=== PATIENT | female | born 1950 | race Caucasian/White ===

== ENCOUNTER 2023-12-04 16:39 | Inpatient (IN) | payer MEDICARE, BC ==
[~2023-12-04] VITALS: Ht 160 cm; Wt 62.6 kg
[2023-12-04 20:17] LABS: BASOPHILS % (AUTO) 0.3 % (0.0-2.0); EOSINOPHILS # (AUTO) 0.1 K/uL (0.0-0.7); EOSINOPHILS % (AUTO) 2.2 % (0.0-6.0); HEMATOCRIT 37 % (33-45); HEMOGLOBIN 12.4 g/dL (11.5-14.8); LYMPHOCYTES # (AUTO) 1.2 K/uL (0.8-4.8); LYMPHOCYTES % (AUTO) 26.1 % (20.0-44.0); MEAN CORPUSCULAR HEMOGLOBIN 29 PG (26.0-33.0); MEAN CORPUSCULAR HGB CONC 33 g/dl (31.0-36.0); MEAN CORPUSCULAR VOLUME 87 fL (82-100); MONOCYTES # (AUTO) 0.4 K/uL (0.1-1.30); MONOCYTES % (AUTO) 9.6 % (2.0-12.0); NEUTROPHILS # (AUTO) 2.9 K/uL (1.8-8.9); NEUTROPHILS % (AUTO) 61.8 % (43.0-81.0); PLATELET COUNT (AUTO) 190 K/uL (150-450); RED BLOOD CELL COUNT(AUTO) 4.32 MIL/uL (4.0-5.2); RED CELL DISTRIBUTION WIDTH 15.9 % (11.5-15.0); WHITE BLOOD COUNT (AUTO) 4.6 K/uL (4.3-11.0)
[2023-12-04 20:31] LABS: CALCIUM, SERUM 9.3 mg/dL (8.5-10.1); CARBON DIOXIDE 28 mmol/L (21-32); CHLORIDE 104 mmol/L (98-107); CREATININE 1.2 mg/dL (0.6-1.3); GLUCOSE 93 mg/dL (74-106); POTASSIUM 3.8 mmol/L (3.5-5.1); SODIUM SERUM 138 mmol/L (136-145); UREA NITROGEN, BLOOD 20 mg/dL (7-18)
[2023-12-04 20:34] LABS: INR 0.97 (0.91-1.10); PARTIAL THROMBOPLASTIN TIME 30.5 SEC (24.3-34.3); PROTHROMBIN TIME 10.3 SECS (9.2-11.1)
[2023-12-04 20:38] LABS: ALANINE AMINOTRANSFERASE 16 U/L (12-78); ALKALINE PHOSPHATASE 106 U/L (46-116); ASPARTATE AMINOTRANSFERASE 11 U/L (15-37); BILIRUBIN,DIRECT 0.1 mg/dL (0.0-0.2); BILIRUBIN,TOTAL 0.2 mg/dL (0.2-1.0); TOTAL PROTEIN, SERUM 6.3 g/dL (6.4-8.2)
[2023-12-04 20:40] LABS: THYROID STIMULATING HORMONE 0.352 uIU/mL (0.358-3.74)
[2023-12-04 20:41] LABS: APPEARANCE,URINE CLEAR (CLEAR); BILIRUBIN,URINE 1+ (NEGATIVE); BLOOD, URINE NEGATIVE Ery/uL (NEGATIVE); COLOR,URINE YELLOW (YELLOW); KETONES,URINE TRACE mg/dL (NEGATIVE); LEUKOCYTE ESTERASE ,URINE NEGATIVE (NEGATIVE); NITRITE, URINE NEGATIVE (NEGATIVE); PH,URINE 5.5 (5.0-8.0); PROTEIN,URINE NEGATIVE (NEGATIVE); UGLUCOSE NEGATIVE (NEGATIVE)
[2023-12-04 21:48] LABS: ADD URINE CULTURE NO; BACTERIA,URINE None seen /HPF (None Seen); RBC,URINE NONE SEEN /HPF (0-2); SQUAMOUS EPITHELIAL CELL,UR 0-2 /HPF (None Seen); WBC,URINE NONE SEEN /HPF (0-3)
[2023-12-04] MEDS ORDERED: HYDR-500 PO (21:56)
[2023-12-04] MEDS ORDERED: ATOR40TA PO (21:56)
[2023-12-04] MEDS ORDERED: RIVA10TA PO (21:56)
[2023-12-04] MEDS ORDERED: ZALE10CA PO (21:56)
[2023-12-04] MEDS ORDERED: ESCI20TA PO (21:56)
[2023-12-04] MEDS ORDERED: AMIT25TA9 PO (21:56)
[2023-12-04] MEDS ORDERED: PRAM1.5T3 PO (21:56)
[2023-12-04] MEDS ORDERED: AMLO-212 PO (21:56)
[2023-12-04] MEDS ORDERED: GABA600T12 PO (21:56)
[2023-12-04] MEDS ORDERED: SOTA80TA PO (21:56)
[2023-12-04] MEDS ORDERED: PRED20TA PO (21:56)
[2023-12-04 22:10] VITALS: BP 136/56; TEMP 97.3; O2SAT 95
[2023-12-05] MEDS ORDERED: ACETAMINOPHEN 325 MG TABLET PO PRN (00:30)
[2023-12-05] MEDS ORDERED: ONDANSETRON HCL/PF 4 MG/2 ML VIAL IVP PRN (00:30)
[2023-12-05] MEDS: IV NS 0.9% 1,000 ML IV PRN (00:53)
[2023-12-05] MEDS: AMITRIPTYLINE HCL 25 MG TABLET PO SCH ×2 (01:11→21:05)
[2023-12-05] MEDS: ENOXAPARIN SODIUM 40 MG/0.4 ML DISP.SYRIN SQ SCH ×2 (01:11→20:01)
[2023-12-05] MEDS: ATORVASTATIN 40 MG TABLET PO SCH ×2 (01:11→21:05)
[2023-12-05 07:21] LABS: BASOPHILS % (AUTO) 0.4 % (0.0-2.0); EOSINOPHILS # (AUTO) 0.1 K/uL (0.0-0.7); EOSINOPHILS % (AUTO) 2.3 % (0.0-6.0); HEMATOCRIT 37 % (33-45); HEMOGLOBIN 12.5 g/dL (11.5-14.8); LYMPHOCYTES # (AUTO) 1.2 K/uL (0.8-4.8); LYMPHOCYTES % (AUTO) 24.9 % (20.0-44.0); MEAN CORPUSCULAR HEMOGLOBIN 29 PG (26.0-33.0); MEAN CORPUSCULAR HGB CONC 34 g/dl (31.0-36.0); MEAN CORPUSCULAR VOLUME 86 fL (82-100); MONOCYTES # (AUTO) 0.4 K/uL (0.1-1.30); MONOCYTES % (AUTO) 8.2 % (2.0-12.0); NEUTROPHILS # (AUTO) 3.1 K/uL (1.8-8.9); NEUTROPHILS % (AUTO) 64.2 % (43.0-81.0); PLATELET COUNT (AUTO) 182 K/uL (150-450); RED BLOOD CELL COUNT(AUTO) 4.32 MIL/uL (4.0-5.2); RED CELL DISTRIBUTION WIDTH 15.5 % (11.5-15.0); WHITE BLOOD COUNT (AUTO) 4.8 K/uL (4.3-11.0)
[2023-12-05 08:34] VITALS: BP 139/62; TEMP 97.7; O2SAT 99
[2023-12-05] MEDS ORDERED: AZIT250T PO (08:38)
[2023-12-05 08:52] LABS: CREATININE 0.8 mg/dL (0.6-1.3); MAGNESIUM 1.5 mg/dL (1.8-2.4); PHOSPHORUS 3.6 mg/dL (2.5-4.9); POTASSIUM 3.8 mmol/L (3.5-5.1)
[2023-12-05] MEDS ORDERED: hydrOXYzine PAMOATE 25 MG CAPSULE PO PRN (09:00)
[2023-12-05] MEDS: ESCITALOPRAM OXALATE (10 MG) 10 MG TABLET PO SCH (09:07)
[2023-12-05] MEDS: predniSONE 20 MG TABLET PO SCH (09:07)
[2023-12-05] MEDS: PRAMIPEXOLE DI-HCL 0.25 MG TABLET PO SCH (09:07)
[2023-12-05] MEDS: GABAPENTIN 300 MG CAPSULE PO SCH ×3 (09:07→17:03)
[2023-12-05] MEDS: AMLODIPINE BESYLATE 5 MG TABLET PO SCH (09:08)
[2023-12-05] MEDS: SOTALOL HCL 80 MG TABLET PO SCH ×2 (09:36→21:16)
[2023-12-05] MEDS ORDERED: MAGNESIUM OXIDE 400 MG TABLET PO ONE (10:30)
[2023-12-05] MEDS: RIVAROXABAN 10 MG TABLET PO SCH (17:05)
[2023-12-05] MEDS ORDERED: LORAZEPAM 1 MG TABLET PO ONE (18:30)
[2023-12-05] MEDS: ZOLPIDEM TARTRATE 10 MG TABLET PO PRN (19:23)
[2023-12-05 20:00] VITALS: BP 109/77; TEMP 98.1; O2SAT 98
[2023-12-05] MEDS ORDERED: SOTALOL AF 80 MG TABLET ONE (21:13)
[2023-12-06] MEDS: IV NS 0.9% 1,000 ML IV PRN (02:37)
[2023-12-06 07:00] VITALS: BP 150/71; TEMP 97.7; O2SAT 98
[2023-12-06 07:15] LABS: BASOPHILS % (AUTO) 0.5 % (0.0-2.0); EOSINOPHILS % (AUTO) 0.8 % (0.0-6.0); HEMATOCRIT 39 % (33-45); HEMOGLOBIN 12.9 g/dL (11.5-14.8); LYMPHOCYTES # (AUTO) 1.2 K/uL (0.8-4.8); LYMPHOCYTES % (AUTO) 19.8 % (20.0-44.0); MEAN CORPUSCULAR HEMOGLOBIN 29 PG (26.0-33.0); MEAN CORPUSCULAR HGB CONC 33 g/dl (31.0-36.0); MEAN CORPUSCULAR VOLUME 86 fL (82-100); MONOCYTES # (AUTO) 0.4 K/uL (0.1-1.30); MONOCYTES % (AUTO) 6.2 % (2.0-12.0); NEUTROPHILS # (AUTO) 4.3 K/uL (1.8-8.9); NEUTROPHILS % (AUTO) 72.7 % (43.0-81.0); PLATELET COUNT (AUTO) 211 K/uL (150-450); RED CELL DISTRIBUTION WIDTH 15.8 % (11.5-15.0)
[2023-12-06 07:36] LABS: CALCIUM, SERUM 9.4 mg/dL (8.5-10.1); CARBON DIOXIDE 29 mmol/L (21-32); CHLORIDE 106 mmol/L (98-107); CREATININE 0.8 mg/dL (0.6-1.3); GLUCOSE 86 mg/dL (74-106); MAGNESIUM 1.7 mg/dL (1.8-2.4); PHOSPHORUS 2.6 mg/dL (2.5-4.9); POTASSIUM 3.9 mmol/L (3.5-5.1); SODIUM SERUM 141 mmol/L (136-145); UREA NITROGEN, BLOOD 15 mg/dL (7-18)
[2023-12-06] MEDS: ESCITALOPRAM OXALATE (10 MG) 10 MG TABLET PO SCH (09:17)
[2023-12-06] MEDS: PRAMIPEXOLE DI-HCL 0.25 MG TABLET PO SCH (09:18)
[2023-12-06] MEDS: GABAPENTIN 300 MG CAPSULE PO SCH ×3 (09:18→17:23)
[2023-12-06] MEDS: AMLODIPINE BESYLATE 5 MG TABLET PO SCH (09:19)
[2023-12-06] MEDS: predniSONE 20 MG TABLET PO SCH (09:19)
[2023-12-06] MEDS: SOTALOL HCL 80 MG TABLET PO SCH ×2 (09:24→20:28)
[2023-12-06] MEDS ORDERED: MAGNESIUM OXIDE 400 MG TABLET PO ONE (10:00)
[2023-12-06] MEDS: NICOTINE PATCH (21MG) 21 MG PATCH.TD24 TD SCH (15:10)
[2023-12-06 16:00] VITALS: BP 131/60; TEMP 97.9; O2SAT 92
[2023-12-06] MEDS: RIVAROXABAN 10 MG TABLET PO SCH (17:24)
[2023-12-06] MEDS: ZOLPIDEM TARTRATE 10 MG TABLET PO PRN (19:31)
[2023-12-06 20:00] VITALS: BP 155/73; TEMP 97.7; O2SAT 95
[2023-12-06] MEDS: ATORVASTATIN 40 MG TABLET PO SCH (20:28)
[2023-12-06] MEDS: ENOXAPARIN SODIUM 40 MG/0.4 ML DISP.SYRIN SQ SCH (20:33)
[2023-12-06] MEDS: AMITRIPTYLINE HCL 25 MG TABLET PO SCH (20:34)
[2023-12-07 07:00] VITALS: BP 151/67; TEMP 98.1; O2SAT 97
[2023-12-07 07:10] LABS: BASOPHILS % (AUTO) 0.3 % (0.0-2.0); EOSINOPHILS % (AUTO) 0.4 % (0.0-6.0); HEMATOCRIT 37 % (33-45); HEMOGLOBIN 12.6 g/dL (11.5-14.8); LYMPHOCYTES # (AUTO) 1.3 K/uL (0.8-4.8); MEAN CORPUSCULAR HEMOGLOBIN 29 PG (26.0-33.0); MEAN CORPUSCULAR HGB CONC 34 g/dl (31.0-36.0); MEAN CORPUSCULAR VOLUME 86 fL (82-100); MONOCYTES # (AUTO) 0.5 K/uL (0.1-1.30); MONOCYTES % (AUTO) 7.8 % (2.0-12.0); NEUTROPHILS # (AUTO) 4.5 K/uL (1.8-8.9); NEUTROPHILS % (AUTO) 70.5 % (43.0-81.0); PLATELET COUNT (AUTO) 217 K/uL (150-450); RED BLOOD CELL COUNT(AUTO) 4.36 MIL/uL (4.0-5.2); RED CELL DISTRIBUTION WIDTH 15.5 % (11.5-15.0); WHITE BLOOD COUNT (AUTO) 6.4 K/uL (4.3-11.0)
[2023-12-07 07:30] LABS: CALCIUM, SERUM 8.6 mg/dL (8.5-10.1); CARBON DIOXIDE 28 mmol/L (21-32); CHLORIDE 104 mmol/L (98-107); CREATININE 0.9 mg/dL (0.6-1.3); GLUCOSE 90 mg/dL (74-106); MAGNESIUM 1.5 mg/dL (1.8-2.4); PHOSPHORUS 2.4 mg/dL (2.5-4.9); POTASSIUM 3.8 mmol/L (3.5-5.1); SODIUM SERUM 139 mmol/L (136-145); UREA NITROGEN, BLOOD 15 mg/dL (7-18)
[2023-12-07] MEDS: NICOTINE PATCH (21MG) 21 MG PATCH.TD24 TD SCH (09:27)
[2023-12-07] MEDS: GABAPENTIN 300 MG CAPSULE PO SCH ×2 (09:27→14:43)
[2023-12-07] MEDS: AMLODIPINE BESYLATE 5 MG TABLET PO SCH (09:27)
[2023-12-07] MEDS: predniSONE 20 MG TABLET PO SCH (09:27)
[2023-12-07] MEDS: ESCITALOPRAM OXALATE (10 MG) 10 MG TABLET PO SCH (09:27)
[2023-12-07 09:28] VITALS: BP 151/67
[2023-12-07] MEDS: SOTALOL HCL 80 MG TABLET PO SCH (09:28)
[2023-12-07] MEDS ORDERED: MAGNESIUM OXIDE 400 MG TABLET PO ONE (11:00)
[2023-12-07] MEDS: PRAMIPEXOLE DI-HCL 0.25 MG TABLET PO SCH (14:44)
[2023-12-07] MEDS ORDERED: K PHOS NEUTRAL 250 MG TABLET PO ONE (15:30)
== END 2023-12-07 17:40 | DRG 641 ==
LOC: ER 16:43 → MED 21:45
PROVIDERS: ADMIT Nurse Practitioner Acute Care; ATTEND Nurse Practitioner Acute Care
DX: E86.0 Dehydration (principal); E44.1 Mild protein-calorie malnutrition; R45.851 Suicidal ideations; F33.2 Major depressive disorder, recurrent severe without psychotic features; R62.7 Adult failure to thrive; E83.42 Hypomagnesemia; E88.09 Other disorders of plasma-protein metabolism, not elsewhere classified; E05.90 Thyrotoxicosis, unspecified without thyrotoxic crisis or storm; Z95.0 Presence of cardiac pacemaker; Z68.24 Body mass index [BMI] 24.0-24.9, adult
CPT/HCPCS: 36415; 70450-TC; 71045-TC; 80048-TC; 80076-TC; 81001; 83735-TC; 84100-TC; 84439-TC; 84443-TC; 84481; 84484-TC; 85025-TC; 85730-TC; 87081-TC; 97112-TC; 97116-TC; 97530-TC; A4223; G0378; J1650; J7030

== ENCOUNTER 2024-01-29 14:03 | Inpatient (IN) | payer MEDICARE, BC ==
[~2024-01-29] VITALS: Ht 160 cm; Wt 65.3 kg
[~2024-01-29 14:03] MED LIST: AMIT25TA9 PO; AMLO-212 PO; ATOR40TA PO; AZIT250T PO; ESCI20TA PO; GABA600T12 PO; HYDR-500 PO; PRAM1.5T3 PO; RIVA10TA PO; SOTA80TA PO; ZALE10CA PO
[2024-01-29] MEDS ORDERED: LORA10TA7 PO (15:17)
[2024-01-29] MEDS ORDERED: BACL10TA PO (15:17)
[2024-01-29] MEDS ORDERED: METH4TAB PO (15:17)
[2024-01-29] MEDS ORDERED: ACET-868 PO (15:17)
[2024-01-29] MEDS ORDERED: HYDR-4209 PO (15:17)
[2024-01-29 15:50] LABS: BASOPHILS # (AUTO) 0.1 K/uL (0.0-0.2); BASOPHILS % (AUTO) 0.9 % (0.0-2.0); HEMATOCRIT 26 % (33-45); HEMOGLOBIN 7.5 g/dL (11.5-14.8); LYMPHOCYTES # (AUTO) 0.5 K/uL (0.8-4.8); LYMPHOCYTES % (AUTO) 7.5 % (20.0-44.0); MEAN CORPUSCULAR HEMOGLOBIN 24 PG (26.0-33.0); MEAN CORPUSCULAR HGB CONC 29 g/dl (31.0-36.0); MEAN CORPUSCULAR VOLUME 81 fL (82-100); MONOCYTES # (AUTO) 0.2 K/uL (0.1-1.30); MONOCYTES % (AUTO) 2.5 % (2.0-12.0); NEUTROPHILS # (AUTO) 5.6 K/uL (1.8-8.9); NEUTROPHILS % (AUTO) 89.1 % (43.0-81.0); PLATELET COUNT (AUTO) 280 K/uL (150-450); RED CELL DISTRIBUTION WIDTH 23.2 % (11.5-15.0); WHITE BLOOD COUNT (AUTO) 6.3 K/uL (4.3-11.0)
[2024-01-29] MEDS ORDERED: MORPHINE SULFATE INJ 2 MG/ML DISP.SYRIN ONE ×2 (16:01→16:08)
[2024-01-29] MEDS ORDERED: ONDANSETRON HCL/PF 4 MG/2 ML VIAL ONE (16:01)
[2024-01-29] MEDS ORDERED: methylPREDNISolone SOD SUCC 40 MG/ML VIAL ONE (16:15)
[2024-01-29] MEDS: MORPHINE SULFATE INJ 4 MG/ML DISP.SYRIN IV ONE (16:17)
[2024-01-29] MEDS: methylPREDNISolone SOD SUCC 40 MG/ML VIAL IV ONE (16:20)
[2024-01-29 16:23] LABS: CALCIUM, SERUM 8.5 mg/dL (8.5-10.1); CARBON DIOXIDE 29 mmol/L (21-32); CHLORIDE 104 mmol/L (98-107); CREATININE 0.8 mg/dL (0.6-1.3); GLUCOSE 115 mg/dL (74-106); POTASSIUM 4.1 mmol/L (3.5-5.1); SODIUM SERUM 138 mmol/L (136-145); UREA NITROGEN, BLOOD 24 mg/dL (7-18)
[2024-01-29 20:00] VITALS: BP 137/61; TEMP 97.5; O2SAT 94
[2024-01-29] MEDS ORDERED: ENOXAPARIN SODIUM 40 MG/0.4 ML DISP.SYRIN SQ SCH (20:00)
[2024-01-29] MEDS ORDERED: MAGNESIUM HYDROXIDE 30 ML UDC PO PRN (20:00)
[2024-01-29] MEDS ORDERED: Z GUARD REMEDY 4 OZ OINT TP PRN (20:00)
[2024-01-29] MEDS ORDERED: BACLOFEN (10 MG) 10 MG TABLET PO PRN (20:00)
[2024-01-29] MEDS ORDERED: MAG HYDROX/AL HYDROX/SIMETH 30 ML UDC PO PRN (20:00)
[2024-01-29] MEDS ORDERED: LORATADINE 10 MG TABLET PO PRN (20:00)
[2024-01-29] MEDS ORDERED: ONDANSETRON HCL/PF 4 MG/2 ML VIAL IVP PRN (20:00)
[2024-01-29] MEDS: IV NS 0.9% 1,000 ML IV PRN (20:58)
[2024-01-29] MEDS: GABAPENTIN 400 MG CAPSULE PO SCH (21:42)
[2024-01-29] MEDS: ATORVASTATIN 40 MG TABLET PO SCH (21:42)
[2024-01-29 22:27] VITALS: BP 137/61; TEMP 97.5; O2SAT 94
[2024-01-30] VITALS (7 sets, daily range): BP systolic 108–151; BP diastolic 44–88; TEMP 97.7–98.4; O2SAT 92–96
[2024-01-30] MEDS: HYDROCODONE/APAP 5/325MG TABLET PO PRN (01:43)
[2024-01-30] MEDS: ACETAMINOPHEN 325 MG TABLET PO PRN (05:56)
[2024-01-30 07:04] LABS: BASOPHILS % (AUTO) 0.2 % (0.0-2.0); EOSINOPHILS % (AUTO) 0.1 % (0.0-6.0); HEMATOCRIT 23 % (33-45); LYMPHOCYTES # (AUTO) 0.5 K/uL (0.8-4.8); LYMPHOCYTES % (AUTO) 9.9 % (20.0-44.0); MEAN CORPUSCULAR HEMOGLOBIN 24 PG (26.0-33.0); MEAN CORPUSCULAR HGB CONC 30 g/dl (31.0-36.0); MEAN CORPUSCULAR VOLUME 79 fL (82-100); MONOCYTES # (AUTO) 0.2 K/uL (0.1-1.30); MONOCYTES % (AUTO) 4.8 % (2.0-12.0); NEUTROPHILS # (AUTO) 4.1 K/uL (1.8-8.9); PLATELET COUNT (AUTO) 257 K/uL (150-450); RED BLOOD CELL COUNT(AUTO) 2.85 MIL/uL (4.0-5.2); RED CELL DISTRIBUTION WIDTH 22.4 % (11.5-15.0); WHITE BLOOD COUNT (AUTO) 4.8 K/uL (4.3-11.0)
[2024-01-30 07:05] LABS: HEMOGLOBIN 6.8 g/dL (11.5-14.8)
[2024-01-30 07:15] LABS: CALCIUM, SERUM 8.4 mg/dL (8.5-10.1); CREATININE 0.7 mg/dL (0.6-1.3); MAGNESIUM 1.9 mg/dL (1.8-2.4); PHOSPHORUS 4.1 mg/dL (2.5-4.9); POTASSIUM 4.4 mmol/L (3.5-5.1)
[2024-01-30 07:20] LABS: THYROID STIMULATING HORMONE 0.142 uIU/mL (0.358-3.74)
[2024-01-30] MEDS: PANTOPRAZOLE 40 MG TABLET.DR PO SCH (08:56)
[2024-01-30] MEDS: ESCITALOPRAM OXALATE (10 MG) 10 MG TABLET PO SCH (08:56)
[2024-01-30] MEDS: AMLODIPINE BESYLATE 5 MG TABLET PO SCH (08:57)
[2024-01-30] MEDS: SOTALOL HCL 80 MG TABLET PO SCH (09:04)
[2024-01-30] MEDS: methylPREDNISolone (4MG) 4 MG TABLET PO SCH (09:05)
[2024-01-30] MEDS ORDERED: RIVAROXABAN 10 MG TABLET PO SCH (10:00)
[2024-01-30 12:03] LABS: ANISOCYTOSIS 1+; BASOPHILS % (MANUAL) 0 % (0.0-2.0); EOSINOPHILS % (MANUAL) 0 % (0-4); HYPOCHROMASIA 1+; LYMPHOCYTES % (MANUAL) 10 % (16-48); MONOCYTES % (MANUAL) 6 % (0-11.0); NEUTROPHILS % (MANUAL) 84 (42-76); PLATELET ESTIMATE ADEQUATE; STOMATOCYTES 1+
[2024-01-31] VITALS (9 sets, daily range): BP systolic 116–151; BP diastolic 59–90; TEMP 97.7–98.4; O2SAT 95–96
[2024-01-31] MEDS: GABAPENTIN 300 MG CAPSULE PO SCH (09:10)
[2024-01-31 16:15] LABS: HEMOGLOBIN 8.1 g/dL (11.5-14.8)
[2024-01-31] MEDS: TRAZODONE 50 MG TABLET PO PRN (23:21)
[2024-02-01 11:46] VITALS: BP 113/92; TEMP 98.8
[2024-02-01 16:10] VITALS: BP 158/94
== END 2024-02-01 17:47 | DRG 552 ==
LOC: ER 14:10 → MED 17:24 → TELE 19:05 → MED 01-30 11:10
PROC: 30233N1 Transfusion of Nonautologous Red Blood Cells into Peripheral Vein, Percutaneous Approach (ICD-10-PCS; principal; 2024-01-31)
DX: M47.816 Spondylosis without myelopathy or radiculopathy, lumbar region (principal); G89.29 Other chronic pain; E78.5 Hyperlipidemia, unspecified; I10 Essential (primary) hypertension; Z79.891 Long term (current) use of opiate analgesic; Z79.899 Other long term (current) drug therapy; Z79.01 Long term (current) use of anticoagulants; R53.83 Other fatigue; R79.89 Other specified abnormal findings of blood chemistry; Z95.0 Presence of cardiac pacemaker
CPT/HCPCS: 36415; 72131-TC; 80048-TC; 80061-TC; 83735-TC; 84100-TC; 84443-TC; 84484-TC; 85025-TC; 85027-TC; 86850-TC; 97112-TC; 97116-TC; 97530-TC; A4223; G0378; J2270; J2405; J2920; J7030; J7050; J7509; P9016

== ENCOUNTER 2024-03-27 17:33 | Emergency (ER) | payer MEDICARE, BC ==
[~2024-03-27] VITALS: Ht 160 cm; Wt 68.0 kg
[~2024-03-27 17:33] MED LIST changes: +ACET-868 PO; -AMIT25TA9 PO; -AZIT250T PO; +BACL10TA PO; +HYDR-4209 PO; -HYDR-500 PO; +LORA10TA7 PO; +METH4TAB PO
[2024-03-27] MEDS ORDERED: HYDROCODONE/APAP 5/325MG TABLET ONE (18:14)
[2024-03-27] MEDS: HYDROCODONE/APAP 5/325MG TABLET PO ONE (18:19)
[2024-03-27 18:22] LABS: BASOPHILS % (AUTO) 0.7 % (0.0-2.0); EOSINOPHILS # (AUTO) 0.1 K/uL (0.0-0.7); EOSINOPHILS % (AUTO) 1.6 % (0.0-6.0); HEMATOCRIT 26 % (33-45); HEMOGLOBIN 7.6 g/dL (11.5-14.8); LYMPHOCYTES # (AUTO) 0.7 K/uL (0.8-4.8); LYMPHOCYTES % (AUTO) 18.6 % (20.0-44.0); MEAN CORPUSCULAR HEMOGLOBIN 21 PG (26.0-33.0); MEAN CORPUSCULAR HGB CONC 29 g/dl (31.0-36.0); MEAN CORPUSCULAR VOLUME 72 fL (82-100); MONOCYTES # (AUTO) 0.3 K/uL (0.1-1.30); MONOCYTES % (AUTO) 6.9 % (2.0-12.0); NEUTROPHILS # (AUTO) 2.7 K/uL (1.8-8.9); NEUTROPHILS % (AUTO) 72.2 % (43.0-81.0); PLATELET COUNT (AUTO) 136 K/uL (150-450); RED BLOOD CELL COUNT(AUTO) 3.65 MIL/uL (4.0-5.2); RED CELL DISTRIBUTION WIDTH 21.7 % (11.5-15.0); WHITE BLOOD COUNT (AUTO) 3.8 K/uL (4.3-11.0)
[2024-03-27 18:26] LABS: CALCIUM, SERUM 8.7 mg/dL (8.5-10.1); CREATININE 1.1 mg/dL (0.6-1.3); POTASSIUM 4.3 mmol/L (3.5-5.1)
[2024-03-27 19:23] LABS: ANISOCYTOSIS 1+; BAND % (MANUAL) 1 % (0.0-5.0); EOSINOPHILS % (MANUAL) 3 % (0-4); HYPOCHROMASIA 1+; LYMPHOCYTES % (MANUAL) 20 % (16-48); MONOCYTES % (MANUAL) 8 % (0-11.0); NEUTROPHILS % (MANUAL) 68 (42-76); PLATELET ESTIMATE DECREASED
[2024-03-27 19:24] LABS: OVALOCYTES 1+; STOMATOCYTES 1+
[2024-03-27 21:01] VITALS: BP 135/60; TEMP 98.2; O2SAT 98
== END 2024-03-27 21:09 ==
LOC: ER 17:37
DX: R10.32 Left lower quadrant pain (principal); M25.552 Pain in left hip; I10 Essential (primary) hypertension; I48.91 Unspecified atrial fibrillation; F32.9 Major depressive disorder, single episode, unspecified; F41.9 Anxiety disorder, unspecified; Z79.899 Other long term (current) drug therapy
CPT/HCPCS: 36415; 72170-TC; 73552; 80048-TC; 85025-TC

== ENCOUNTER 2024-03-31 20:29 | Inpatient (IN) | payer MEDICARE, BC ==
[~2024-03-31] VITALS: Ht 170.2 cm; Wt 68.0 kg
[2024-03-31 21:41] LABS: BASOPHILS % (AUTO) 0.8 % (0.0-2.0); EOSINOPHILS # (AUTO) 0.1 K/uL (0.0-0.7); EOSINOPHILS % (AUTO) 1.7 % (0.0-6.0); HEMATOCRIT 25 % (33-45); HEMOGLOBIN 7.4 g/dL (11.5-14.8); LYMPHOCYTES # (AUTO) 1.1 K/uL (0.8-4.8); LYMPHOCYTES % (AUTO) 34.9 % (20.0-44.0); MEAN CORPUSCULAR HEMOGLOBIN 21 PG (26.0-33.0); MEAN CORPUSCULAR HGB CONC 29 g/dl (31.0-36.0); MEAN CORPUSCULAR VOLUME 71 fL (82-100); MONOCYTES # (AUTO) 0.3 K/uL (0.1-1.30); MONOCYTES % (AUTO) 9.1 % (2.0-12.0); NEUTROPHILS # (AUTO) 1.6 K/uL (1.8-8.9); NEUTROPHILS % (AUTO) 53.5 % (43.0-81.0); PLATELET COUNT (AUTO) 127 K/uL (150-450); RED BLOOD CELL COUNT(AUTO) 3.51 MIL/uL (4.0-5.2); RED CELL DISTRIBUTION WIDTH 21.6 % (11.5-15.0)
[2024-03-31 21:54] LABS: CALCIUM, SERUM 9.1 mg/dL (8.5-10.1); CARBON DIOXIDE 30 mmol/L (21-32); CHLORIDE 110 mmol/L (98-107); CREATININE 0.9 mg/dL (0.6-1.3); GLUCOSE 111 mg/dL (74-106); POTASSIUM 4.4 mmol/L (3.5-5.1); SODIUM SERUM 146 mmol/L (136-145); UREA NITROGEN, BLOOD 16 mg/dL (7-18)
[2024-03-31 21:57] LABS: APPEARANCE,URINE CLEAR (CLEAR); BILIRUBIN,URINE NEGATIVE (NEGATIVE); BLOOD, URINE NEGATIVE Ery/uL (NEGATIVE); COLOR,URINE YELLOW (YELLOW); KETONES,URINE NEGATIVE (NEGATIVE); LEUKOCYTE ESTERASE ,URINE NEGATIVE (NEGATIVE); NITRITE, URINE NEGATIVE (NEGATIVE); PROTEIN,URINE NEGATIVE (NEGATIVE); UGLUCOSE NEGATIVE (NEGATIVE)
[2024-03-31 21:59] LABS: ADD URINE CULTURE NO; BACTERIA,URINE None seen /HPF (None Seen); RBC,URINE 0-2 /HPF (0-2); WBC,URINE 0-2 /HPF (0-3)
[2024-03-31 22:00] LABS: ACETAMINOPHEN < 10 ug/ml (10-30); ALANINE AMINOTRANSFERASE 11 U/L (12-78); ALBUMIN 2.9 g/dL (3.4-5.0); ALKALINE PHOSPHATASE 78 U/L (46-116); ASPARTATE AMINOTRANSFERASE 12 U/L (15-37); BILIRUBIN,DIRECT 0.1 mg/dL (0.0-0.2); BILIRUBIN,TOTAL 0.2 mg/dL (0.2-1.0); SALICYLATE 3.8 mg/dL (2.8-20.0); TOTAL PROTEIN, SERUM 5.5 g/dL (6.4-8.2)
[2024-03-31 22:01] LABS: ALCOHOL, BLOOD < 3 mg/dL (0-10)
[2024-03-31 22:09] LABS: AMPHETAMINE, URINE NEGATIVE (NEGATIVE); BARBITURATE, URINE NEGATIVE (NEGATIVE); BENZODIAZEPINE, URINE NEGATIVE (NEGATIVE); CANNABINOID, URINE NEGATIVE (NEGATIVE); COCCAINE, URINE NEGATIVE (NEGATIVE); PHENCYCLIDINE SCREEN,URINE NEGATIVE (NEGATIVE)
[2024-03-31 22:11] LABS: OPIATE, URINE POSITIVE (NEGATIVE)
[2024-04-01] MEDS: HYDROCODONE/APAP 5/325MG TABLET PO ONE (01:30)
[2024-04-01 02:06] LABS: ANISOCYTOSIS 1+; BASOPHILS % (MANUAL) 0 % (0.0-2.0); EOSINOPHILS % (MANUAL) 2 % (0-4); HYPOCHROMASIA 1+; LYMPHOCYTES % (MANUAL) 29 % (16-48); MONOCYTES % (MANUAL) 8 % (0-11.0); NEUTROPHILS % (MANUAL) 61 (42-76); OVALOCYTES 1+; PLATELET ESTIMATE DECREASED
[2024-04-01] MEDS ORDERED: HYDROCODONE/APAP 5/325MG TABLET ONE (02:29)
[2024-04-01 03:00] VITALS: BP 136/67; TEMP 97.9; O2SAT 95
[2024-04-01] MEDS ORDERED: MAGNESIUM HYDROXIDE 30 ML UDC PO PRN (03:00)
[2024-04-01] MEDS ORDERED: MAG HYDROX/AL HYDROX/SIMETH 30 ML UDC PO PRN (03:00)
[2024-04-01] MEDS: BLOOD SUGAR DIAGNOSTIC 1 EACH STRIP IN ONE (03:01)
[2024-04-01] MEDS ORDERED: LORATADINE 10 MG TABLET PO PRN (03:30)
[2024-04-01] MEDS ORDERED: BACLOFEN (10 MG) 10 MG TABLET PO PRN (03:30)
[2024-04-01] MEDS: ACETAMINOPHEN 325 MG TABLET PO PRN ×2 (04:21→09:21)
[2024-04-01 07:37] LABS: ALANINE AMINOTRANSFERASE 14 U/L (12-78); ALBUMIN 3.2 g/dL (3.4-5.0); ALKALINE PHOSPHATASE 83 U/L (46-116); ASPARTATE AMINOTRANSFERASE 14 U/L (15-37); BILIRUBIN,TOTAL 0.3 mg/dL (0.2-1.0); CALCIUM, SERUM 9.5 mg/dL (8.5-10.1); CARBON DIOXIDE 30 mmol/L (21-32); CHLORIDE 109 mmol/L (98-107); GLUCOSE 87 mg/dL (74-106); POTASSIUM 4.4 mmol/L (3.5-5.1); SODIUM SERUM 143 mmol/L (136-145); UREA NITROGEN, BLOOD 16 mg/dL (7-18)
[2024-04-01 07:41] LABS: CHOLESTEROL 111 mg/dL (<200); HDL CHOLESTEROL 56 mg/dL (40-60); LDL 45 mg/dL (0-99); TRIGLYCERIDES 74 mg/dL (30-150)
[2024-04-01] MEDS: HYDROCODONE/APAP 5/325MG TABLET PO PRN ×2 (07:44→14:59)
[2024-04-01 07:49] LABS: BASOPHILS % (AUTO) 1.1 % (0.0-2.0); EOSINOPHILS % (AUTO) 1.2 % (0.0-6.0); HEMATOCRIT 28 % (33-45); HEMOGLOBIN 8.3 g/dL (11.5-14.8); LYMPHOCYTES % (AUTO) 35.2 % (20.0-44.0); MEAN CORPUSCULAR HEMOGLOBIN 21 PG (26.0-33.0); MEAN CORPUSCULAR HGB CONC 30 g/dl (31.0-36.0); MEAN CORPUSCULAR VOLUME 72 fL (82-100); MONOCYTES # (AUTO) 0.2 K/uL (0.1-1.30); MONOCYTES % (AUTO) 8.1 % (2.0-12.0); NEUTROPHILS # (AUTO) 1.6 K/uL (1.8-8.9); NEUTROPHILS % (AUTO) 54.4 % (43.0-81.0); PLATELET COUNT (AUTO) 135 K/uL (150-450); RED BLOOD CELL COUNT(AUTO) 3.91 MIL/uL (4.0-5.2); RED CELL DISTRIBUTION WIDTH 21.4 % (11.5-15.0)
[2024-04-01] MEDS ORDERED: BACL5TAB PO (07:59)
[2024-04-01] MEDS ORDERED: TRAZ-182 PO (07:59)
[2024-04-01] MEDS ORDERED: HYDR-4303 PO (07:59)
[2024-04-01] MEDS ORDERED: ACET-2030 PO (07:59)
[2024-04-01] MEDS ORDERED: PANT40TA2 PO (07:59)
[2024-04-01] MEDS ORDERED: GABA300C PO (07:59)
[2024-04-01] MEDS ORDERED: LIQUID PROTEIN PO (07:59)
[2024-04-01] MEDS ORDERED: ONDA-97 PO (07:59)
[2024-04-01] MEDS ORDERED: HYDR-3980 PO (07:59)
[2024-04-01] MEDS ORDERED: CYAN-51 PO (07:59)
[2024-04-01] MEDS ORDERED: ERGO500093 PO (07:59)
[2024-04-01 08:00] VITALS: BP 130/80; TEMP 97.9; O2SAT 95
[2024-04-01] MEDS: AMLODIPINE BESYLATE 5 MG TABLET PO SCH (08:38)
[2024-04-01] MEDS: SOTALOL HCL 80 MG TABLET PO SCH (08:39)
[2024-04-01] MEDS: RIVAROXABAN 10 MG TABLET PO SCH (08:56)
[2024-04-01] MEDS: methylPREDNISolone (4MG) 4 MG TABLET PO SCH (09:21)
[2024-04-01] MEDS ORDERED: GABAPENTIN 300 MG CAPSULE PO SCH (12:00)
[2024-04-01] MEDS: DULOXETINE HCL 30 MG CAPSULE.DR PO SCH (12:29)
[2024-04-01] MEDS: ESCITALOPRAM OXALATE (10 MG) 10 MG TABLET PO SCH (12:29)
[2024-04-01 16:03] VITALS: BP 133/60; TEMP 97.7; O2SAT 97
[2024-04-01] MEDS: PREGABALIN 25 MG CAPSULE PO SCH (16:29)
[2024-04-01] MEDS: ATORVASTATIN 40 MG TABLET PO SCH (21:38)
[2024-04-01] MEDS: TRAZODONE 50 MG TABLET PO SCH (21:38)
[2024-04-02 08:00] VITALS: BP 135/65; TEMP 97.7; O2SAT 98
[2024-04-02 13:12] LABS: IRON, SERUM 15 ug/dl (50-175); TOTAL IRON BINDING CAPACITY 447 ug/dl (250-450)
[2024-04-02 13:24] LABS: FERRITIN 10 ng/mL (8-388); THYROID STIMULATING HORMONE 0.936 uIU/mL (0.358-3.74)
[2024-04-02 13:36] LABS: CALCIUM, SERUM 9.8 mg/dL (8.5-10.1); CARBON DIOXIDE 30 mmol/L (21-32); CHLORIDE 103 mmol/L (98-107); GLUCOSE 116 mg/dL (74-106); POTASSIUM 3.8 mmol/L (3.5-5.1); SODIUM SERUM 140 mmol/L (136-145); UREA NITROGEN, BLOOD 16 mg/dL (7-18)
[2024-04-02 13:51] LABS: BASOPHILS % (AUTO) 0.5 % (0.0-2.0); EOSINOPHILS % (AUTO) 0.3 % (0.0-6.0); HEMATOCRIT 28 % (33-45); HEMOGLOBIN 8.4 g/dL (11.5-14.8); LYMPHOCYTES # (AUTO) 0.3 K/uL (0.8-4.8); LYMPHOCYTES % (AUTO) 7.6 % (20.0-44.0); MEAN CORPUSCULAR HEMOGLOBIN 21 PG (26.0-33.0); MEAN CORPUSCULAR HGB CONC 30 g/dl (31.0-36.0); MEAN CORPUSCULAR VOLUME 71 fL (82-100); MONOCYTES # (AUTO) 0.2 K/uL (0.1-1.30); MONOCYTES % (AUTO) 3.6 % (2.0-12.0); NEUTROPHILS # (AUTO) 4.1 K/uL (1.8-8.9); PLATELET COUNT (AUTO) 141 K/uL (150-450); RED BLOOD CELL COUNT(AUTO) 4.02 MIL/uL (4.0-5.2); WHITE BLOOD COUNT (AUTO) 4.6 K/uL (4.3-11.0)
[2024-04-02 16:00] VITALS: BP 141/56; TEMP 98.7; O2SAT 96
[2024-04-02] MEDS: DULOXETINE HCL 30 MG CAPSULE.DR PO SCH (16:36)
[2024-04-02 18:00] LABS: ANISOCYTOSIS 2+; HYPOCHROMASIA 1+; LYMPHOCYTES % (MANUAL) 6 % (16-48); MONOCYTES % (MANUAL) 5 % (0-11.0); NEUTROPHILS % (MANUAL) 89 (42-76); PLATELET ESTIMATE DECREASED
[2024-04-02 18:01] LABS: OVALOCYTES 1+
[2024-04-03] MEDS: TEMAZEPAM 7.5 MG CAPSULE PO PRN (02:06)
[2024-04-03] MEDS: LORAZEPAM 0.5 MG TABLET PO PRN (04:44)
[2024-04-03 08:00] VITALS: BP 126/77; TEMP 98.2; O2SAT 98
[2024-04-03] MEDS: ESCITALOPRAM OXALATE (10 MG) 10 MG TABLET PO SCH (08:39)
[2024-04-03 08:40] VITALS: BP 126/77
[2024-04-03] MEDS: ASCORBIC ACID 500 MG TABLET PO SCH (09:43)
[2024-04-03] MEDS: FERROUS SULFATE (325 MG) 325 MG/TAB TABLET PO SCH (09:43)
[2024-04-03] MEDS: LIDOCAINE 5% (PATCH) 1 EA PATCH TP SCH (11:02)
[2024-04-03] MEDS: METHOCARBAMOL (500MG) 500 MG TABLET PO PRN (11:03)
[2024-04-03] MEDS: POLYETHYLENE GLYCOL 3350 17 GM POWD.PACK PO SCH (12:19)
[2024-04-03] MEDS ORDERED: PREGABALIN 25 MG CAPSULE PO SCH (17:00)
[2024-04-04] MEDS ORDERED: PSYLLIUM SEED 1 PKT PACKET PO SCH (09:00)
== END 2024-04-03 15:23 | DRG 885 ==
LOC: ER 20:31 → GPS 04-01 01:26
PROVIDERS: ADMIT Psychiatry & Neurology Psychosomatic Medicine; ATTEND Nurse Practitioner Family
DX: F33.9 Major depressive disorder, recurrent, unspecified (principal); I10 Essential (primary) hypertension; Z20.822 Contact with and (suspected) exposure to COVID-19; D64.9 Anemia, unspecified; E78.5 Hyperlipidemia, unspecified; G89.29 Other chronic pain; Z86.73 Personal history of transient ischemic attack (TIA), and cerebral infarction without residual deficits; F41.9 Anxiety disorder, unspecified; Z73.6 Limitation of activities due to disability; M79.662 Pain in left lower leg; I48.91 Unspecified atrial fibrillation; Z79.01 Long term (current) use of anticoagulants; Z79.899 Other long term (current) drug therapy; J43.9 Emphysema, unspecified; F17.210 Nicotine dependence, cigarettes, uncomplicated; Z95.0 Presence of cardiac pacemaker
CPT/HCPCS: 36415; 80048-TC; 80053-TC; 80061-TC; 80076-TC; 81001; 82607-TC; 82728-TC; 82962-TC; 83540-TC; 84443-TC; 85025-TC; 87081-TC; 93971-TC; 97110-TC; 97116-TC; 97530-TC; G0480; J7509

== ENCOUNTER 2024-04-11 01:30 | Emergency (ER) | payer MEDICARE, BC, MEDICAID ==
[~2024-04-11] VITALS: Ht 162.6 cm; Wt 74.8 kg
[~2024-04-11 01:30] MED LIST changes: +ACET-2030 PO; -BACL10TA PO; +BACL5TAB PO; +CYAN-51 PO; +ERGO500093 PO; +GABA300C PO; -GABA600T12 PO; +HYDR-3980 PO; -HYDR-4209 PO; +HYDR-4303 PO; +LIQUID PROTEIN PO; -LORA10TA7 PO; -METH4TAB PO; +ONDA-97 PO; +PANT40TA2 PO; -SOTA80TA PO; +TRAZ-182 PO; -ZALE10CA PO
[2024-04-11 01:59] VITALS: BP 120/61; TEMP 98.4; O2SAT 98
[2024-04-11] MEDS ORDERED: MORPHINE SULFATE INJ 4 MG/ML DISP.SYRIN ONE (02:27)
[2024-04-11] MEDS ORDERED: ONDANSETRON HCL/PF 4 MG/2 ML VIAL ONE (02:28)
[2024-04-11] MEDS: MORPHINE SULFATE INJ 2 MG/ML DISP.SYRIN IV ONE (02:34)
[2024-04-11 02:35] LABS: BASOPHILS % (AUTO) 1.1 % (0.0-2.0); EOSINOPHILS # (AUTO) 0.1 K/uL (0.0-0.7); EOSINOPHILS % (AUTO) 1.8 % (0.0-6.0); HEMATOCRIT 30 % (33-45); HEMOGLOBIN 9.1 g/dL (11.5-14.8); LYMPHOCYTES # (AUTO) 1.3 K/uL (0.8-4.8); LYMPHOCYTES % (AUTO) 29.4 % (20.0-44.0); MEAN CORPUSCULAR HEMOGLOBIN 22 PG (26.0-33.0); MEAN CORPUSCULAR HGB CONC 30 g/dl (31.0-36.0); MEAN CORPUSCULAR VOLUME 73 fL (82-100); MONOCYTES # (AUTO) 0.4 K/uL (0.1-1.30); MONOCYTES % (AUTO) 9.5 % (2.0-12.0); NEUTROPHILS # (AUTO) 2.5 K/uL (1.8-8.9); NEUTROPHILS % (AUTO) 58.2 % (43.0-81.0); PLATELET COUNT (AUTO) 178 K/uL (150-450); RED BLOOD CELL COUNT(AUTO) 4.14 MIL/uL (4.0-5.2); RED CELL DISTRIBUTION WIDTH 22.1 % (11.5-15.0); WHITE BLOOD COUNT (AUTO) 4.3 K/uL (4.3-11.0)
[2024-04-11] MEDS: ONDANSETRON HCL/PF - ER 4 MG/2 ML VIAL IV ONE (02:35)
[2024-04-11 02:54] LABS: LACTIC ACID 0.8 mmol/L (0.4-2.0)
[2024-04-11 03:00] LABS: ALBUMIN 3.5 g/dL (3.4-5.0); BILIRUBIN,TOTAL 0.4 mg/dL (0.2-1.0); CALCIUM, SERUM 10.3 mg/dL (8.5-10.1); POTASSIUM 4.7 mmol/L (3.5-5.1); TOTAL PROTEIN, SERUM 6.4 g/dL (6.4-8.2)
[2024-04-11 03:48] LABS: APPEARANCE,URINE CLEAR (CLEAR); BILIRUBIN,URINE NEGATIVE (NEGATIVE); BLOOD, URINE NEGATIVE Ery/uL (NEGATIVE); COLOR,URINE YELLOW (YELLOW); KETONES,URINE NEGATIVE (NEGATIVE); LEUKOCYTE ESTERASE ,URINE NEGATIVE (NEGATIVE); NITRITE, URINE NEGATIVE (NEGATIVE); PH,URINE 6.5 (5.0-8.0); PROTEIN,URINE NEGATIVE (NEGATIVE); UGLUCOSE NEGATIVE (NEGATIVE)
== END 2024-04-11 06:41 ==
LOC: ER 01:39
DX: R10.32 Left lower quadrant pain (principal); I48.91 Unspecified atrial fibrillation; I10 Essential (primary) hypertension; F32.9 Major depressive disorder, single episode, unspecified; F41.9 Anxiety disorder, unspecified
CPT/HCPCS: 99285; 74176; 96374; 96375; 85025; 83605; 83690; 81003; 36415; 80053; J2270; J2405 ×2

== ENCOUNTER 2024-04-13 08:37 | Inpatient (IN) | payer MEDICARE, BC, OTHER ==
[~2024-04-13] VITALS: Ht 160 cm; Wt 60.3 kg
[2024-04-13] MEDS ORDERED: ONDANSETRON HCL/PF 4 MG/2 ML VIAL ONE (09:05)
[2024-04-13] MEDS ORDERED: MORPHINE SULFATE INJ 4 MG/ML DISP.SYRIN ONE (09:06)
[2024-04-13] MEDS: MORPHINE SULFATE INJ 2 MG/ML DISP.SYRIN IV ONE (09:16)
[2024-04-13] MEDS: IV NS 0.9% 1,000 ML BAG IV ONE (09:16)
[2024-04-13] MEDS: ONDANSETRON HCL/PF 4 MG/2 ML VIAL IVP ONE (09:16)
[2024-04-13 09:34] LABS: BASOPHILS % (AUTO) 0.8 % (0.0-2.0); EOSINOPHILS % (AUTO) 0.9 % (0.0-6.0); HEMATOCRIT 34 % (33-45); LYMPHOCYTES # (AUTO) 0.9 K/uL (0.8-4.8); LYMPHOCYTES % (AUTO) 16.1 % (20.0-44.0); MEAN CORPUSCULAR HEMOGLOBIN 22 PG (26.0-33.0); MEAN CORPUSCULAR HGB CONC 30 g/dl (31.0-36.0); MEAN CORPUSCULAR VOLUME 73 fL (82-100); MONOCYTES # (AUTO) 0.4 K/uL (0.1-1.30); MONOCYTES % (AUTO) 7.3 % (2.0-12.0); NEUTROPHILS % (AUTO) 74.9 % (43.0-81.0); PLATELET COUNT (AUTO) 200 K/uL (150-450); RED BLOOD CELL COUNT(AUTO) 4.61 MIL/uL (4.0-5.2); RED CELL DISTRIBUTION WIDTH 23.3 % (11.5-15.0); WHITE BLOOD COUNT (AUTO) 5.3 K/uL (4.3-11.0)
[2024-04-13 09:39] LABS: ADD URINE CULTURE NO; APPEARANCE,URINE CLEAR (CLEAR); BACTERIA,URINE Rare /HPF (None Seen); BILIRUBIN,URINE 1+ (NEGATIVE); BLOOD, URINE NEGATIVE Ery/uL (NEGATIVE); COLOR,URINE YELLOW (YELLOW); KETONES,URINE 1+ mg/dL (NEGATIVE); LEUKOCYTE ESTERASE ,URINE NEGATIVE (NEGATIVE); NITRITE, URINE NEGATIVE (NEGATIVE); PROTEIN,URINE NEGATIVE (NEGATIVE); SQUAMOUS EPITHELIAL CELL,UR Few /HPF (None Seen); UGLUCOSE NEGATIVE (NEGATIVE); WBC,URINE 0-2 /HPF (0-3)
[2024-04-13 09:45] LABS: CALCIUM, SERUM 10.1 mg/dL (8.5-10.1); CREATININE 1.3 mg/dL (0.6-1.3)
[2024-04-13] MEDS ORDERED: IOHEXOL-300 100 ML VIAL IV ONE (09:45)
[2024-04-13] MEDS ORDERED: CT SWABBABLE VALVE TRANS SET 1 EA INFUS.SET MC ONE (09:45)
[2024-04-13] MEDS ORDERED: IV NS 0.9% 250 ML IV ONE (09:46)
[2024-04-13 09:56] LABS: ALBUMIN 3.9 g/dL (3.4-5.0); BILIRUBIN,DIRECT 0.2 mg/dL (0.0-0.2); BILIRUBIN,TOTAL 0.6 mg/dL (0.2-1.0)
[2024-04-13] MEDS ORDERED: HALOPERIDOL LACTATE INJ 5 MG/ML VIAL ONE (10:01)
[2024-04-13] MEDS ORDERED: HYDROMORPHONE 1 MG/1 ML DISP.SYRIN ONE ×2 (10:02→11:01)
[2024-04-13] MEDS: HALOPERIDOL LACTATE INJ 5 MG/ML VIAL IM ONE (10:03)
[2024-04-13] MEDS: HYDROMORPHONE INJ 2 MG/ML DISP.SYRIN IV ONE (10:03)
[2024-04-13] MEDS: HYDROMORPHONE 1 MG/1 ML DISP.SYRIN IV ONE (11:03)
[2024-04-13] MEDS ORDERED: LORA-258 PO (11:08)
[2024-04-13] MEDS ORDERED: NALO4SPR NS (11:08)
[2024-04-13] MEDS ORDERED: FERR325T28 PO (11:08)
[2024-04-13] MEDS ORDERED: DULO30CA2 PO (11:08)
[2024-04-13] MEDS ORDERED: [UNRECOGNIZED DRUG - CODE] PO (11:08)
[2024-04-13] MEDS ORDERED: ASCO-340 PO (11:08)
[2024-04-13] MEDS ORDERED: MAG-5 PO (11:08)
[2024-04-13] MEDS ORDERED: POLY17PO4 PO (11:08)
[2024-04-13] MEDS ORDERED: LORA10TA7 PO (11:08)
[2024-04-13] MEDS ORDERED: PREG75CA PO (11:08)
[2024-04-13] MEDS ORDERED: LIDO30AD10 TP (11:08)
[2024-04-13] MEDS ORDERED: TEMA7.5C12 PO (11:08)
[2024-04-13] MEDS ORDERED: MAGN400O6 PO (11:08)
[2024-04-13] MEDS ORDERED: SOTA80TA26 PO (11:08)
[2024-04-13] MEDS ORDERED: ACETAMINOPHEN 325 MG TABLET PO PRN (13:00)
[2024-04-13] MEDS ORDERED: MAG HYDROX/AL HYDROX/SIMETH 30 ML UDC PO PRN (13:00)
[2024-04-13] MEDS ORDERED: ONDANSETRON HCL/PF 4 MG/2 ML VIAL IVP PRN (13:00)
[2024-04-13] MEDS ORDERED: MORPHINE SULFATE INJ 10 MG/ML DISP.SYRIN IV PRN (13:00)
[2024-04-13] MEDS ORDERED: Z GUARD REMEDY 4 OZ OINT TP PRN (13:00)
[2024-04-13] MEDS ORDERED: MAGNESIUM HYDROXIDE 30 ML UDC PO PRN (13:00)
[2024-04-13] MEDS ORDERED: LORAZEPAM 0.5 MG TABLET PO PRN (13:30)
[2024-04-13] MEDS ORDERED: LORATADINE 10 MG TABLET PO PRN (13:30)
[2024-04-13] MEDS ORDERED: BACLOFEN (10 MG) 10 MG TABLET PO PRN (14:00)
[2024-04-13] MEDS: PIPERACILLIN /TAZOBACTAM 3.375 G in IV D5W 100 ML IV SCH (16:06)
[2024-04-13] MEDS: IV NS 0.9% 1,000 ML IV PRN (16:08)
[2024-04-13] MEDS: GABAPENTIN 300 MG CAPSULE PO SCH (17:10)
[2024-04-13] MEDS: PREGABALIN 25 MG CAPSULE PO SCH (17:10)
[2024-04-13] MEDS: DULOXETINE HCL 30 MG CAPSULE.DR PO SCH (17:10)
[2024-04-13] MEDS: FERROUS SULFATE (325 MG) 325 MG/TAB TABLET PO SCH (17:10)
[2024-04-13] MEDS: SOTALOL HCL 80 MG TABLET PO SCH (17:13)
[2024-04-13] MEDS ORDERED: GABAPENTIN 300 MG CAPSULE PO SCH (18:00)
[2024-04-13] MEDS ORDERED: PIPERACILLIN /TAZOBACTAM 4.5 G in IV D5W 50 ML IV SCH (18:00)
[2024-04-13] MEDS: HYDROCODONE/APAP 5/325MG TABLET PO PRN (18:04)
[2024-04-13] MEDS: MORPHINE SULFATE INJ 2 MG/ML DISP.SYRIN IV PRN (19:45)
[2024-04-13] MEDS: ZOLPIDEM TARTRATE 5 MG TABLET PO PRN (20:18)
[2024-04-13] MEDS: ATORVASTATIN 40 MG TABLET PO SCH (21:54)
[2024-04-14 06:45] LABS: BASOPHILS % (AUTO) 0.7 % (0.0-2.0); EOSINOPHILS % (AUTO) 1.2 % (0.0-6.0); HEMATOCRIT 28 % (33-45); HEMOGLOBIN 8.5 g/dL (11.5-14.8); LYMPHOCYTES # (AUTO) 0.8 K/uL (0.8-4.8); LYMPHOCYTES % (AUTO) 19.5 % (20.0-44.0); MEAN CORPUSCULAR HEMOGLOBIN 22 PG (26.0-33.0); MEAN CORPUSCULAR HGB CONC 30 g/dl (31.0-36.0); MEAN CORPUSCULAR VOLUME 73 fL (82-100); MONOCYTES # (AUTO) 0.4 K/uL (0.1-1.30); MONOCYTES % (AUTO) 11.1 % (2.0-12.0); NEUTROPHILS # (AUTO) 2.8 K/uL (1.8-8.9); NEUTROPHILS % (AUTO) 67.5 % (43.0-81.0); PLATELET COUNT (AUTO) 175 K/uL (150-450); RED CELL DISTRIBUTION WIDTH 22.8 % (11.5-15.0); WHITE BLOOD COUNT (AUTO) 4.1 K/uL (4.3-11.0)
[2024-04-14 06:52] LABS: CARBON DIOXIDE 24 mmol/L (21-32); CHLORIDE 109 mmol/L (98-107); GLUCOSE 62 mg/dL (74-106); MAGNESIUM 1.7 mg/dL (1.8-2.4); PHOSPHORUS 3.7 mg/dL (2.5-4.9); POTASSIUM 3.8 mmol/L (3.5-5.1); SODIUM SERUM 143 mmol/L (136-145); UREA NITROGEN, BLOOD 12 mg/dL (7-18)
[2024-04-14] MEDS: PANTOPRAZOLE 40 MG VIAL IV SCH (09:02)
[2024-04-14] MEDS: POLYETHYLENE GLYCOL 3350 17 GM POWD.PACK PO SCH (09:02)
[2024-04-14] MEDS: ESCITALOPRAM OXALATE (10 MG) 10 MG TABLET PO SCH (09:03)
[2024-04-14] MEDS: RIVAROXABAN 15 MG TABLET PO SCH (09:03)
[2024-04-14] MEDS: AMLODIPINE BESYLATE 5 MG TABLET PO SCH (09:04)
[2024-04-14] MEDS: MAGNESIUM OXIDE 400 MG TABLET PO ONE (10:16)
[2024-04-15] MEDS: PANTOPRAZOLE 40 MG TABLET.DR PO SCH (09:05)
[2024-04-15] MEDS ORDERED: METR500T PO ×2 (15:48)
[2024-04-15 16:00] VITALS: BP 130/82; TEMP 99.1; O2SAT 99
== END 2024-04-15 18:35 | DRG 373 ==
LOC: ER 08:45 → MEDSG1 13:04
PROVIDERS: ADMIT Internal Medicine; ATTEND Student in an Organized Health Care Education/Training Program
DX: A04.9 Bacterial intestinal infection, unspecified (principal); I10 Essential (primary) hypertension; I48.91 Unspecified atrial fibrillation; F41.9 Anxiety disorder, unspecified; E78.5 Hyperlipidemia, unspecified; F32.A Depression, unspecified; Z79.01 Long term (current) use of anticoagulants; Z86.73 Personal history of transient ischemic attack (TIA), and cerebral infarction without residual deficits; Z95.0 Presence of cardiac pacemaker; D50.9 Iron deficiency anemia, unspecified; Z90.49 Acquired absence of other specified parts of digestive tract; G89.29 Other chronic pain; M79.662 Pain in left lower leg; M54.50 Low back pain, unspecified; M51.35 Other intervertebral disc degeneration, thoracolumbar region; J44.9 Chronic obstructive pulmonary disease, unspecified; J43.9 Emphysema, unspecified; Z87.891 Personal history of nicotine dependence
CPT/HCPCS: 36415; 80048-TC; 80053-TC; 80076-TC; 81001; 83605-TC; 83690-TC; 83735-TC; 84100-TC; 85025-TC; 87081-TC; 97110-TC; 97116-TC; 97530-TC; A4223; C9113; G0378; J1170; J1630; J2270; J2405; J2543; J7030; J7050; J7060; Q9967

== ENCOUNTER 2024-05-04 12:20 | Emergency (ER) | payer MEDICARE, BC, OTHER ==
[~2024-05-04] VITALS: Ht 162.6 cm; Wt 56.2 kg
[~2024-05-04 12:20] MED LIST changes: +ASCO-340 PO; +DULO30CA2 PO; +FERR325T28 PO; -HYDR-4303 PO; +LIDO30AD10 TP; -LIQUID PROTEIN PO; +LORA-258 PO; +LORA10TA7 PO; +MAG-5 PO; +MAGN400O6 PO; +METR500T PO; +NALO4SPR NS; +POLY17PO4 PO; +PREG75CA PO; +SOTA80TA26 PO; +TEMA7.5C12 PO; +[UNRECOGNIZED DRUG - CODE] PO
[2024-05-04] MEDS ORDERED: IBUP-1953 PO (14:11)
[2024-05-04 14:16] VITALS: BP 121/74; TEMP 98; O2SAT 97
[2024-05-04] MEDS ORDERED: ACETAMINOPHEN ES 500 MG TABLET ONE (14:16)
[2024-05-04] MEDS ORDERED: IBUPROFEN 600 MG TABLET ONE (14:16)
[2024-05-04] MEDS: ACETAMINOPHEN ES 500 MG TABLET PO ONE (14:16)
[2024-05-04] MEDS: IBUPROFEN 600 MG TABLET PO ONE (14:16)
[2024-05-04] MEDS: HYDROCODONE/APAP 5/325MG TABLET PO ONE (14:59)
[2024-05-04] MEDS ORDERED: HYDROCODONE/APAP 5/325MG TABLET ONE (14:59)
== END 2024-05-04 18:55 ==
LOC: ER 12:31
DX: M79.652 Pain in left thigh (principal); I10 Essential (primary) hypertension; I48.91 Unspecified atrial fibrillation; F32.9 Major depressive disorder, single episode, unspecified; F41.9 Anxiety disorder, unspecified
CPT/HCPCS: 73552

== ENCOUNTER 2024-06-12 08:25 | Emergency (ER) | payer MEDICARE, BC, OTHER ==
[~2024-06-12] VITALS: Ht 162.6 cm; Wt 56.7 kg
[~2024-06-12 08:25] MED LIST changes: +IBUP-1953 PO
[2024-06-12] MEDS ORDERED: ONDANSETRON HCL/PF 4 MG/2 ML VIAL ONE (09:43)
[2024-06-12] MEDS ORDERED: MORPHINE SULFATE INJ 4 MG/ML DISP.SYRIN ONE (09:44)
[2024-06-12] MEDS: MORPHINE SULFATE INJ 2 MG/ML DISP.SYRIN IV ONE (09:58)
[2024-06-12] MEDS: ONDANSETRON HCL/PF - ER 4 MG/2 ML VIAL IV ONE (09:58)
[2024-06-12 10:08] LABS: BASOPHILS % (AUTO) 0.5 % (0.0-2.0); EOSINOPHILS # (AUTO) 0.1 K/uL (0.0-0.7); EOSINOPHILS % (AUTO) 1.9 % (0.0-6.0); HEMATOCRIT 40 % (33-45); HEMOGLOBIN 12.7 g/dL (11.5-14.8); LYMPHOCYTES # (AUTO) 1.3 K/uL (0.8-4.8); LYMPHOCYTES % (AUTO) 28.5 % (20.0-44.0); MEAN CORPUSCULAR HEMOGLOBIN 27 PG (26.0-33.0); MEAN CORPUSCULAR HGB CONC 32 g/dl (31.0-36.0); MEAN CORPUSCULAR VOLUME 85 fL (82-100); MONOCYTES # (AUTO) 0.4 K/uL (0.1-1.30); MONOCYTES % (AUTO) 7.5 % (2.0-12.0); NEUTROPHILS # (AUTO) 2.9 K/uL (1.8-8.9); NEUTROPHILS % (AUTO) 61.6 % (43.0-81.0); PLATELET COUNT (AUTO) 149 K/uL (150-450); RED BLOOD CELL COUNT(AUTO) 4.64 MIL/uL (4.0-5.2); WHITE BLOOD COUNT (AUTO) 4.7 K/uL (4.3-11.0)
[2024-06-12 10:18] LABS: CALCIUM, SERUM 9.4 mg/dL (8.5-10.1); CARBON DIOXIDE 32 mmol/L (21-32); CHLORIDE 108 mmol/L (98-107); CREATININE 0.7 mg/dL (0.6-1.3); GLUCOSE 83 mg/dL (74-106); POTASSIUM 4.5 mmol/L (3.5-5.1); SODIUM SERUM 145 mmol/L (136-145); UREA NITROGEN, BLOOD 12 mg/dL (7-18)
[2024-06-12 10:24] LABS: ALANINE AMINOTRANSFERASE 15 U/L (12-78); ALBUMIN 3.3 g/dL (3.4-5.0); ALKALINE PHOSPHATASE 91 U/L (46-116); ASPARTATE AMINOTRANSFERASE 16 U/L (15-37); BILIRUBIN,TOTAL 0.5 mg/dL (0.2-1.0); TOTAL PROTEIN, SERUM 6.2 g/dL (6.4-8.2)
[2024-06-12 11:23] LABS: APPEARANCE,URINE CLEAR (CLEAR); BILIRUBIN,URINE NEGATIVE (NEGATIVE); BLOOD, URINE NEGATIVE Ery/uL (NEGATIVE); COLOR,URINE YELLOW (YELLOW); KETONES,URINE NEGATIVE (NEGATIVE); LEUKOCYTE ESTERASE ,URINE NEGATIVE (NEGATIVE); NITRITE, URINE NEGATIVE (NEGATIVE); PROTEIN,URINE NEGATIVE (NEGATIVE); UGLUCOSE NEGATIVE (NEGATIVE); UROBILINOGEN,URINE 0.2 EU/dL (0.2)
[2024-06-12 13:32] VITALS: BP 158/91; TEMP 98.2; O2SAT 94
== END 2024-06-12 13:32 | disposition home or self-care (01) ==
LOC: ER 08:59
DX: R10.32 Left lower quadrant pain (principal); I48.91 Unspecified atrial fibrillation; I10 Essential (primary) hypertension; F32.9 Major depressive disorder, single episode, unspecified; F41.9 Anxiety disorder, unspecified; Z95.0 Presence of cardiac pacemaker; Z90.49 Acquired absence of other specified parts of digestive tract
CPT/HCPCS: 99285; 74176; 96374; 96375; 85025; 81003; 36415; 80053; J2270; J2405 ×2

== ENCOUNTER 2024-09-26 04:25 | Emergency (ER) | payer MEDICARE, BC, MEDICAID ==
[~2024-09-26] VITALS: Ht 165.1 cm; Wt 74.8 kg
[2024-09-26 05:28] LABS: BASOPHILS % (AUTO) 0.4 % (0.0-2.0); EOSINOPHILS # (AUTO) 0.1 K/uL (0.0-0.7); EOSINOPHILS % (AUTO) 1.3 % (0.0-6.0); HEMATOCRIT 40 % (33-45); HEMOGLOBIN 13.3 g/dL (11.5-14.8); LYMPHOCYTES # (AUTO) 1.3 K/uL (0.8-4.8); LYMPHOCYTES % (AUTO) 27.9 % (20.0-44.0); MEAN CORPUSCULAR HEMOGLOBIN 31 PG (26.0-33.0); MEAN CORPUSCULAR HGB CONC 33 g/dl (31.0-36.0); MEAN CORPUSCULAR VOLUME 94 fL (82-100); MONOCYTES # (AUTO) 0.4 K/uL (0.1-1.30); MONOCYTES % (AUTO) 8.5 % (2.0-12.0); NEUTROPHILS # (AUTO) 2.9 K/uL (1.8-8.9); NEUTROPHILS % (AUTO) 61.9 % (43.0-81.0); PLATELET COUNT (AUTO) 144 K/uL (150-450); RED CELL DISTRIBUTION WIDTH 14.5 % (11.5-15.0); WHITE BLOOD COUNT (AUTO) 4.6 K/uL (4.3-11.0)
[2024-09-26 05:31] LABS: APPEARANCE,URINE CLOUDY (CLEAR); BILIRUBIN,URINE NEGATIVE (NEGATIVE); BLOOD, URINE NEGATIVE Ery/uL (NEGATIVE); COLOR,URINE YELLOW (YELLOW); KETONES,URINE NEGATIVE (NEGATIVE); LEUKOCYTE ESTERASE ,URINE NEGATIVE (NEGATIVE); NITRITE, URINE NEGATIVE (NEGATIVE); PROTEIN,URINE NEGATIVE (NEGATIVE); UGLUCOSE NEGATIVE (NEGATIVE); UROBILINOGEN,URINE 0.2 EU/dL (0.2)
[2024-09-26 05:41] LABS: ALANINE AMINOTRANSFERASE 18 U/L (12-78); ALBUMIN 3.8 g/dL (3.4-5.0); ALKALINE PHOSPHATASE 105 U/L (46-116); ASPARTATE AMINOTRANSFERASE 14 U/L (15-37); BILIRUBIN,DIRECT 0.1 mg/dL (0.0-0.2); BILIRUBIN,TOTAL 0.6 mg/dL (0.2-1.0); CALCIUM, SERUM 9.7 mg/dL (8.5-10.1); CARBON DIOXIDE 32 mmol/L (21-32); CHLORIDE 108 mmol/L (98-107); CREATININE 0.6 mg/dL (0.6-1.3); GLUCOSE 95 mg/dL (74-106); LIPASE 42 U/L (16-77); POTASSIUM 4.4 mmol/L (3.5-5.1); SODIUM SERUM 142 mmol/L (136-145); TOTAL PROTEIN, SERUM 6.5 g/dL (6.4-8.2); UREA NITROGEN, BLOOD 25 mg/dL (7-18)
[2024-09-26 05:58] LABS: ADD URINE CULTURE NO; BACTERIA,URINE None seen /HPF (None Seen); RBC,URINE NONE SEEN /HPF (0-2); WBC,URINE NONE SEEN /HPF (0-3)
[2024-09-26] MEDS ORDERED: MAG HYDROX/AL HYDROX/SIMETH 30 ML UDC ONE (06:52)
[2024-09-26] MEDS ORDERED: FAMOTIDINE (20 MG) 20 MG TABLET ONE (06:52)
[2024-09-26] MEDS: FAMOTIDINE (20 MG) 20 MG TABLET PO ONE (06:55)
[2024-09-26] MEDS: MAG HYDROX/AL HYDROX/SIMETH 30 ML UDC PO ONE (06:55)
[2024-09-26] MEDS ORDERED: AMOX-430 PO (09:01)
[2024-09-26 12:37] VITALS: BP 141/76; TEMP 98.2; O2SAT 97
== END 2024-09-26 10:00 | disposition home or self-care (01) ==
LOC: ER 04:32
DX: R10.10 Upper abdominal pain, unspecified (principal); R10.32 Left lower quadrant pain; R19.7 Diarrhea, unspecified; R41.82 Altered mental status, unspecified; F41.9 Anxiety disorder, unspecified; I10 Essential (primary) hypertension; I48.91 Unspecified atrial fibrillation; K21.9 Gastro-esophageal reflux disease without esophagitis; Z79.01 Long term (current) use of anticoagulants; Z79.899 Other long term (current) drug therapy; Z90.49 Acquired absence of other specified parts of digestive tract; Z90.710 Acquired absence of both cervix and uterus; Z95.0 Presence of cardiac pacemaker; Z86.69 Personal history of other diseases of the nervous system and sense organs; Z87.448 Personal history of other diseases of urinary system; Z87.39 Personal history of other diseases of the musculoskeletal system and connective tissue
CPT/HCPCS: 36415; 70450-TC; 71045-TC; 80048-TC; 80076-TC; 81001; 83690-TC; 84484-TC; 85025-TC

== ENCOUNTER 2024-10-16 19:47 | Emergency (ER) | payer MEDICARE, BC, MEDICAID ==
[~2024-10-16] VITALS: Ht 160 cm; Wt 54.4 kg
[~2024-10-16 19:47] MED LIST changes: +AMOX-430 PO
[2024-10-16] MEDS: IV NS 0.9% 500 ML BAG IV ONE (20:30)
[2024-10-16 21:05] LABS: BASOPHILS % (AUTO) 0.4 % (0.0-2.0); EOSINOPHILS # (AUTO) 0.1 K/uL (0.0-0.7); EOSINOPHILS % (AUTO) 2.1 % (0.0-6.0); HEMATOCRIT 38 % (33-45); HEMOGLOBIN 12.7 g/dL (11.5-14.8); LYMPHOCYTES # (AUTO) 1.4 K/uL (0.8-4.8); LYMPHOCYTES % (AUTO) 26.2 % (20.0-44.0); MEAN CORPUSCULAR HEMOGLOBIN 32 PG (26.0-33.0); MEAN CORPUSCULAR HGB CONC 34 g/dl (31.0-36.0); MEAN CORPUSCULAR VOLUME 95 fL (82-100); MONOCYTES # (AUTO) 0.4 K/uL (0.1-1.30); MONOCYTES % (AUTO) 8.4 % (2.0-12.0); NEUTROPHILS # (AUTO) 3.2 K/uL (1.8-8.9); NEUTROPHILS % (AUTO) 62.9 % (43.0-81.0); PLATELET COUNT (AUTO) 147 K/uL (150-450); RED BLOOD CELL COUNT(AUTO) 3.98 MIL/uL (4.0-5.2); RED CELL DISTRIBUTION WIDTH 14.7 % (11.5-15.0); WHITE BLOOD COUNT (AUTO) 5.2 K/uL (4.3-11.0)
[2024-10-16 21:13] LABS: CREATININE 0.7 mg/dL (0.6-1.3); POTASSIUM 4.3 mmol/L (3.5-5.1)
[2024-10-16 23:53] VITALS: BP 131/80; TEMP 98; O2SAT 98
== END 2024-10-16 23:53 ==
LOC: ER 19:59
DX: G89.29 Other chronic pain (principal); M79.605 Pain in left leg; R42 Dizziness and giddiness; I10 Essential (primary) hypertension; F41.9 Anxiety disorder, unspecified; Z79.01 Long term (current) use of anticoagulants; Z79.899 Other long term (current) drug therapy; Z95.0 Presence of cardiac pacemaker
CPT/HCPCS: 36415; 80048-TC; 85025-TC

== ENCOUNTER 2024-12-04 17:28 | Emergency (ER) | payer MEDICARE, OTHER ==
[~2024-12-04] VITALS: Ht 160 cm; Wt 68.5 kg
[2024-12-04] MEDS ORDERED: ONDANSETRON HCL/PF 4 MG/2 ML VIAL ONE (18:24)
[2024-12-04 18:38] LABS: BASOPHILS % (AUTO) 0.6 % (0.0-2.0); EOSINOPHILS # (AUTO) 0.1 K/uL (0.0-0.7); EOSINOPHILS % (AUTO) 1.8 % (0.0-6.0); HEMATOCRIT 39 % (33-45); HEMOGLOBIN 12.8 g/dL (11.5-14.8); LYMPHOCYTES # (AUTO) 1.3 K/uL (0.8-4.8); LYMPHOCYTES % (AUTO) 30.3 % (20.0-44.0); MEAN CORPUSCULAR HEMOGLOBIN 31 PG (26.0-33.0); MEAN CORPUSCULAR HGB CONC 33 g/dl (31.0-36.0); MEAN CORPUSCULAR VOLUME 95 fL (82-100); MONOCYTES # (AUTO) 0.4 K/uL (0.1-1.30); MONOCYTES % (AUTO) 8.9 % (2.0-12.0); NEUTROPHILS # (AUTO) 2.6 K/uL (1.8-8.9); NEUTROPHILS % (AUTO) 58.4 % (43.0-81.0); PLATELET COUNT (AUTO) 141 K/uL (150-450); RED BLOOD CELL COUNT(AUTO) 4.12 MIL/uL (4.0-5.2); RED CELL DISTRIBUTION WIDTH 14.4 % (11.5-15.0); WHITE BLOOD COUNT (AUTO) 4.4 K/uL (4.3-11.0)
[2024-12-04] MEDS: ONDANSETRON HCL/PF 4 MG/2 ML VIAL IVP ONE (18:39)
[2024-12-04 18:48] LABS: CALCIUM, SERUM 8.8 mg/dL (8.5-10.1); CARBON DIOXIDE 32 mmol/L (21-32); CHLORIDE 109 mmol/L (98-107); CREATININE 0.8 mg/dL (0.6-1.3); GLUCOSE 101 mg/dL (74-106); POTASSIUM 4.1 mmol/L (3.5-5.1); SODIUM SERUM 143 mmol/L (136-145); UREA NITROGEN, BLOOD 24 mg/dL (7-18)
[2024-12-04 18:55] LABS: ALANINE AMINOTRANSFERASE 10 U/L (12-78); ALBUMIN 3.3 g/dL (3.4-5.0); ALKALINE PHOSPHATASE 105 U/L (46-116); ASPARTATE AMINOTRANSFERASE 12 U/L (15-37); BILIRUBIN,DIRECT 0.1 mg/dL (0.0-0.2); BILIRUBIN,TOTAL 0.3 mg/dL (0.2-1.0); TOTAL PROTEIN, SERUM 5.5 g/dL (6.4-8.2)
[2024-12-04 21:37] VITALS: BP 138/79; TEMP 98; O2SAT 94
== END 2024-12-04 23:38 | disposition home or self-care (01) ==
LOC: ER 17:58
DX: R11.0 Nausea (principal); R53.1 Weakness; R22.0 Localized swelling, mass and lump, head; F41.9 Anxiety disorder, unspecified; G44.309 Post-traumatic headache, unspecified, not intractable; I10 Essential (primary) hypertension; I48.91 Unspecified atrial fibrillation; Z79.01 Long term (current) use of anticoagulants; Z79.899 Other long term (current) drug therapy; Z95.0 Presence of cardiac pacemaker; Z86.69 Personal history of other diseases of the nervous system and sense organs; Z87.448 Personal history of other diseases of urinary system; Z87.39 Personal history of other diseases of the musculoskeletal system and connective tissue
CPT/HCPCS: 99285; 72125; 96374; 93005; 70450; 85025; 80048; 80076; 36415; 84484; J2405

== ENCOUNTER 2024-12-26 14:06 | Inpatient (IN) | payer MEDICARE, OTHER ==
[~2024-12-26] VITALS: Ht 160 cm; Wt 60.8 kg
[2024-12-26 14:49] LABS: BASOPHILS % (AUTO) 0.3 % (0.0-2.0); EOSINOPHILS # (AUTO) 0.1 K/uL (0.0-0.7); HEMATOCRIT 45 % (33-45); HEMOGLOBIN 14.7 g/dL (11.5-14.8); LYMPHOCYTES % (AUTO) 17.7 % (20.0-44.0); MEAN CORPUSCULAR HEMOGLOBIN 30 PG (26.0-33.0); MEAN CORPUSCULAR HGB CONC 33 g/dl (31.0-36.0); MEAN CORPUSCULAR VOLUME 92 fL (82-100); MONOCYTES # (AUTO) 0.4 K/uL (0.1-1.30); MONOCYTES % (AUTO) 7.3 % (2.0-12.0); NEUTROPHILS % (AUTO) 73.7 % (43.0-81.0); PLATELET COUNT (AUTO) 165 K/uL (150-450); RED BLOOD CELL COUNT(AUTO) 4.86 MIL/uL (4.0-5.2); RED CELL DISTRIBUTION WIDTH 14.8 % (11.5-15.0); WHITE BLOOD COUNT (AUTO) 5.5 K/uL (4.3-11.0)
[2024-12-26] MEDS ORDERED: RISP1TAB97 PO (14:56)
[2024-12-26] MEDS ORDERED: LORA-259 PO (14:56)
[2024-12-26] MEDS ORDERED: OMEP20CA15 PO (14:56)
[2024-12-26] MEDS ORDERED: GUAI100S69 PO (14:56)
[2024-12-26 14:58] LABS: CALCIUM, SERUM 9.5 mg/dL (8.5-10.1); CREATININE 0.8 mg/dL (0.6-1.3); POTASSIUM 4.8 mmol/L (3.5-5.1)
[2024-12-26] MEDS: NITROGLYCERIN 0.4 MG/TAB BOTTLE SL ONE (15:12)
[2024-12-26] MEDS: ASPIRIN 325 MG TABLET PO ONE (15:13)
[2024-12-26] MEDS ORDERED: ONDANSETRON HCL/PF 4 MG/2 ML VIAL IVP PRN (16:30)
[2024-12-26] MEDS ORDERED: MAGNESIUM HYDROXIDE 30 ML UDC PO PRN (16:30)
[2024-12-26] MEDS ORDERED: Z GUARD REMEDY 4 OZ OINT TP PRN (16:30)
[2024-12-26] MEDS ORDERED: MAG HYDROX/AL HYDROX/SIMETH 30 ML UDC PO PRN (16:30)
[2024-12-26] MEDS ORDERED: LORAZEPAM 1 MG TABLET PO PRN (16:30)
[2024-12-26 17:15] VITALS: BP 153/65; TEMP 97.7; O2SAT 96
[2024-12-26] MEDS: risperiDONE 1 MG TABLET PO SCH (18:01)
[2024-12-26] MEDS: PREGABALIN 25 MG CAPSULE PO SCH (18:02)
[2024-12-26] MEDS: SOTALOL HCL 80 MG TABLET PO SCH (18:03)
[2024-12-26 20:00] VITALS: BP 118/58; TEMP 98.1; O2SAT 95
[2024-12-26] MEDS: ATORVASTATIN 40 MG TABLET PO SCH (21:27)
[2024-12-26] MEDS: TRAZODONE 50 MG TABLET PO SCH (21:27)
[2024-12-27 04:00] VITALS: BP 137/69; TEMP 98.1; O2SAT 94
[2024-12-27 07:57] LABS: CALCIUM, SERUM 10.2 mg/dL (8.5-10.1); CREATININE 0.8 mg/dL (0.6-1.3); PHOSPHORUS 4.1 mg/dL (2.5-4.9); POTASSIUM 4.4 mmol/L (3.5-5.1)
[2024-12-27 08:00] VITALS: BP 137/77; TEMP 98.4; O2SAT 96
[2024-12-27 08:22] LABS: BASOPHILS % (AUTO) 0.6 % (0.0-2.0); EOSINOPHILS # (AUTO) 0.1 K/uL (0.0-0.7); EOSINOPHILS % (AUTO) 1.8 % (0.0-6.0); HEMATOCRIT 47 % (33-45); HEMOGLOBIN 15.4 g/dL (11.5-14.8); LYMPHOCYTES # (AUTO) 1.3 K/uL (0.8-4.8); LYMPHOCYTES % (AUTO) 27.4 % (20.0-44.0); MEAN CORPUSCULAR HEMOGLOBIN 31 PG (26.0-33.0); MEAN CORPUSCULAR HGB CONC 33 g/dl (31.0-36.0); MEAN CORPUSCULAR VOLUME 93 fL (82-100); MONOCYTES # (AUTO) 0.5 K/uL (0.1-1.30); MONOCYTES % (AUTO) 9.4 % (2.0-12.0); NEUTROPHILS % (AUTO) 60.8 % (43.0-81.0); PLATELET COUNT (AUTO) 184 K/uL (150-450); RED BLOOD CELL COUNT(AUTO) 5.05 MIL/uL (4.0-5.2); WHITE BLOOD COUNT (AUTO) 4.9 K/uL (4.3-11.0)
[2024-12-27] MEDS: AMLODIPINE BESYLATE 5 MG TABLET PO SCH (09:23)
[2024-12-27] MEDS: POLYETHYLENE GLYCOL 3350 17 GM POWD.PACK PO SCH (09:23)
[2024-12-27] MEDS: FERROUS SULFATE (325 MG) 325 MG/TAB TABLET PO SCH (09:23)
[2024-12-27] MEDS: PSYLLIUM SEED 1 PKT PACKET PO SCH (09:23)
[2024-12-27] MEDS: PANTOPRAZOLE 40 MG VIAL IV SCH (09:24)
[2024-12-27] MEDS: ESCITALOPRAM OXALATE (10 MG) 10 MG TABLET PO SCH (09:25)
[2024-12-27] MEDS: ASCORBIC ACID 500 MG TABLET PO SCH (09:25)
[2024-12-27] MEDS: RIVAROXABAN 10 MG TABLET PO SCH (09:28)
[2024-12-27] MEDS: CYANOCOBALAMIN 500 MCG TABLET PO SCH (09:31)
[2024-12-27] MEDS: PRAMIPEXOLE DI-HCL 0.25 MG TABLET PO SCH (09:32)
[2024-12-27] MEDS: METOPROLOL TARTRATE 50 MG TABLET PO SCH (09:33)
[2024-12-27 12:00] VITALS: BP 94/70; TEMP 98.4; O2SAT 97
[2024-12-27 16:00] VITALS: BP 102/56; TEMP 98.1; O2SAT 94
[2024-12-27 20:00] VITALS: BP 81/37; TEMP 97.5; O2SAT 93
[2024-12-27] MEDS: ACETAMINOPHEN 325 MG TABLET PO PRN (20:07)
[2024-12-28] VITALS: BP 120/55; TEMP 97.5; O2SAT 92
[2024-12-28 04:00] VITALS: BP 136/59; TEMP 97.5; O2SAT 95
[2024-12-28 06:26] LABS: BASOPHILS % (AUTO) 0.7 % (0.0-2.0); EOSINOPHILS # (AUTO) 0.1 K/uL (0.0-0.7); EOSINOPHILS % (AUTO) 2.3 % (0.0-6.0); HEMATOCRIT 43 % (33-45); HEMOGLOBIN 14.4 g/dL (11.5-14.8); LYMPHOCYTES # (AUTO) 1.4 K/uL (0.8-4.8); MEAN CORPUSCULAR HEMOGLOBIN 31 PG (26.0-33.0); MEAN CORPUSCULAR HGB CONC 34 g/dl (31.0-36.0); MEAN CORPUSCULAR VOLUME 93 fL (82-100); MONOCYTES # (AUTO) 0.4 K/uL (0.1-1.30); MONOCYTES % (AUTO) 9.9 % (2.0-12.0); NEUTROPHILS # (AUTO) 2.4 K/uL (1.8-8.9); NEUTROPHILS % (AUTO) 56.1 % (43.0-81.0); PLATELET COUNT (AUTO) 167 K/uL (150-450); RED BLOOD CELL COUNT(AUTO) 4.64 MIL/uL (4.0-5.2); RED CELL DISTRIBUTION WIDTH 14.6 % (11.5-15.0); WHITE BLOOD COUNT (AUTO) 4.4 K/uL (4.3-11.0)
[2024-12-28 07:00] LABS: CALCIUM, SERUM 9.6 mg/dL (8.5-10.1); CREATININE 0.9 mg/dL (0.6-1.3); MAGNESIUM 1.8 mg/dL (1.8-2.4); PHOSPHORUS 4.1 mg/dL (2.5-4.9); POTASSIUM 4.7 mmol/L (3.5-5.1)
[2024-12-28] MEDS: PANTOPRAZOLE 40 MG TABLET.DR PO SCH (10:09)
[2024-12-28] MEDS: IV 1/2NS 1000 ML 1,000 ML IV SCH (10:09)
[2024-12-28] MEDS ORDERED: CT SWABBABLE VALVE TRANS SET 1 EA INFUS.SET MC ONE (11:42)
[2024-12-28] MEDS ORDERED: IOHEXOL-350 100 ML VIAL IV ONE (11:42)
[2024-12-28] MEDS ORDERED: IV NS 0.9% 250 ML IV ONE (11:42)
[2024-12-28] MEDS ORDERED: METOPROLOL TARTRATE INJ 5 MG/5 ML AMPUL IVP PRN (11:55)
[2024-12-28] MEDS ORDERED: NITROGLYCERIN 0.4 MG/TAB BOTTLE ONE (12:14)
[2024-12-28] MEDS: NITROGLYCERIN 0.4 MG/TAB BOTTLE SL ONE (12:15)
[2024-12-28 21:07] VITALS: BP 112/57; TEMP 97.7; O2SAT 96
[2024-12-29 08:17] VITALS: BP 147/50; TEMP 98.1; O2SAT 95
[2024-12-29 09:37] LABS: INR 1.01 (0.91-1.10); PARTIAL THROMBOPLASTIN TIME 28.8 SEC (24.3-34.3); PROTHROMBIN TIME 10.7 SECS (9.2-11.1)
[2024-12-29 11:56] VITALS: BP 143/77; TEMP 97.7; O2SAT 95
[2024-12-29] MEDS ORDERED: IV SET PRIMARY PUMP SET 1 EA INFUS.SET MC ONE (14:46)
[2024-12-29] MEDS ORDERED: IV NS 0.9% 1,000 ML ONE (14:46)
[2024-12-29] MEDS ORDERED: IODIXANOL 150 ML IV ONE (14:47)
[2024-12-29] MEDS ORDERED: LIDOCAINE HCL/MPF 1% 30 ML VIAL IJ ONE (14:47)
[2024-12-29] MEDS ORDERED: MIDAZOLAM HCL 2 MG/2ML VIAL ONE (15:08)
[2024-12-29] MEDS ORDERED: FENTANYL PF 100MCG/2ML AMPUL ONE (15:08)
[2024-12-29 16:03] VITALS: BP 158/58; TEMP 98.1; O2SAT 95
[2024-12-29 20:00] VITALS: BP 134/70; TEMP 97.7; O2SAT 95
[2024-12-30 07:00] VITALS: BP 98/85; TEMP 97.5; O2SAT 95
[2024-12-30 08:00] VITALS: BP 124/55; TEMP 97.5; O2SAT 95
[2024-12-30 09:23] VITALS: BP 124/55
[2024-12-30] MEDS ORDERED: ASPI-1169 PO (10:49)
== END 2024-12-30 14:40 | DRG 303 ==
LOC: ER 14:18 → TELE 17:17
PROVIDERS: ATTEND Student in an Organized Health Care Education/Training Program
DX: I25.10 Atherosclerotic heart disease of native coronary artery without angina pectoris (principal); I69.351 Hemiplegia and hemiparesis following cerebral infarction affecting right dominant side; I25.810 Atherosclerosis of coronary artery bypass graft(s) without angina pectoris; I10 Essential (primary) hypertension; E78.5 Hyperlipidemia, unspecified; Z79.01 Long term (current) use of anticoagulants; I48.91 Unspecified atrial fibrillation; Z95.0 Presence of cardiac pacemaker; F17.210 Nicotine dependence, cigarettes, uncomplicated; Z95.1 Presence of aortocoronary bypass graft
CPT/HCPCS: 36415; 71045-TC; 75574; 80048-TC; 83735-TC; 83880; 84100-TC; 84484-TC; 85025-TC; 85610-TC; 85730-TC; 87081-TC; 93307-TC; 97110-TC; 97116-TC; 97530-TC; A4223; G0378; J1644; J2250; J2470; J3010; J3490; J7030; J7050; Q9967

== ENCOUNTER 2025-02-18 17:23 | Inpatient (IN) | payer MEDICARE, OTHER, BC ==
[~2025-02-18] VITALS: Ht 160 cm; Wt 73.9 kg
[~2025-02-18 17:23] MED LIST changes: -AMOX-430 PO; +ASPI-1169 PO; -BACL5TAB PO; -DULO30CA2 PO; -ERGO500093 PO; -GABA300C PO; +GUAI100S69 PO; -HYDR-3980 PO; -IBUP-1953 PO; -LIDO30AD10 TP; -LORA-258 PO; +LORA-259 PO; -LORA10TA7 PO; -MAG-5 PO; -MAGN400O6 PO; -METR500T PO; -NALO4SPR NS; +OMEP20CA15 PO; -ONDA-97 PO; -PANT40TA2 PO; +RISP1TAB97 PO; -TEMA7.5C12 PO
[2025-02-18] MEDS ORDERED: SENN-261 PO (19:02)
[2025-02-18] MEDS ORDERED: NICO-726 BC (19:02)
[2025-02-18] MEDS ORDERED: GABA300C PO (19:02)
[2025-02-18 19:27] LABS: BASOPHILS % (AUTO) 0.4 % (0.0-2.0); EOSINOPHILS # (AUTO) 0.1 K/uL (0.0-0.7); EOSINOPHILS % (AUTO) 1.7 % (0.0-6.0); HEMATOCRIT 45 % (33-45); HEMOGLOBIN 15.2 g/dL (11.5-14.8); LYMPHOCYTES # (AUTO) 1.4 K/uL (0.8-4.8); LYMPHOCYTES % (AUTO) 29.4 % (20.0-44.0); MEAN CORPUSCULAR HEMOGLOBIN 31 PG (26.0-33.0); MEAN CORPUSCULAR HGB CONC 34 g/dl (31.0-36.0); MEAN CORPUSCULAR VOLUME 92 fL (82-100); MONOCYTES # (AUTO) 0.4 K/uL (0.1-1.30); MONOCYTES % (AUTO) 8.4 % (2.0-12.0); NEUTROPHILS # (AUTO) 2.8 K/uL (1.8-8.9); NEUTROPHILS % (AUTO) 60.1 % (43.0-81.0); PLATELET COUNT (AUTO) 165 K/uL (150-450); RED BLOOD CELL COUNT(AUTO) 4.87 MIL/uL (4.0-5.2); RED CELL DISTRIBUTION WIDTH 14.9 % (11.5-15.0); WHITE BLOOD COUNT (AUTO) 4.6 K/uL (4.3-11.0)
[2025-02-18 19:42] LABS: ALANINE AMINOTRANSFERASE 15 U/L (12-78); ALBUMIN 4.2 g/dL (3.4-5.0); ALKALINE PHOSPHATASE 115 U/L (46-116); ASPARTATE AMINOTRANSFERASE 16 U/L (15-37); BILIRUBIN,DIRECT 0.2 mg/dL (0.0-0.2); BILIRUBIN,TOTAL 0.8 mg/dL (0.2-1.0); CARBON DIOXIDE 29 mmol/L (21-32); CHLORIDE 105 mmol/L (98-107); CREATININE 0.6 mg/dL (0.6-1.3); GLUCOSE 94 mg/dL (74-106); SODIUM SERUM 142 mmol/L (136-145); TOTAL PROTEIN, SERUM 7.2 g/dL (6.4-8.2); UREA NITROGEN, BLOOD 18 mg/dL (7-18)
[2025-02-18 19:53] LABS: APPEARANCE,URINE CLEAR (CLEAR); BILIRUBIN,URINE NEGATIVE (NEGATIVE); BLOOD, URINE NEGATIVE Ery/uL (NEGATIVE); COLOR,URINE YELLOW (YELLOW); KETONES,URINE NEGATIVE (NEGATIVE); LEUKOCYTE ESTERASE ,URINE NEGATIVE (NEGATIVE); NITRITE, URINE NEGATIVE (NEGATIVE); PH,URINE 6.5 (5.0-8.0); PROTEIN,URINE NEGATIVE (NEGATIVE); UGLUCOSE NEGATIVE (NEGATIVE)
[2025-02-18 19:57] LABS: SALICYLATE 2.6 mg/dL (2.8-20.0)
[2025-02-18 19:58] LABS: ACETAMINOPHEN <10 ug/ml (10-30); ALCOHOL, BLOOD < 3 mg/dL (0-10)
[2025-02-18 19:59] LABS: RBC,URINE 0-2 /HPF (0-2); WBC,URINE 0-2 /HPF (0-3)
[2025-02-18 20:00] LABS: ADD URINE CULTURE NO; BACTERIA,URINE Few /HPF (None Seen); SQUAMOUS EPITHELIAL CELL,UR Few /HPF (None Seen)
[2025-02-18 20:05] LABS: AMPHETAMINE, URINE NEGATIVE (NEGATIVE); BARBITURATE, URINE NEGATIVE (NEGATIVE); BENZODIAZEPINE, URINE NEGATIVE (NEGATIVE); CANNABINOID, URINE NEGATIVE (NEGATIVE); COCCAINE, URINE NEGATIVE (NEGATIVE); OPIATE, URINE NEGATIVE (NEGATIVE); PHENCYCLIDINE SCREEN,URINE NEGATIVE (NEGATIVE)
[2025-02-18 22:30] VITALS: BP 148/76; TEMP 97.7; O2SAT 97
[2025-02-18] MEDS ORDERED: LORAZEPAM 0.5 MG TABLET PO PRN (23:00)
[2025-02-18] MEDS ORDERED: MAG HYDROX/AL HYDROX/SIMETH 30 ML UDC PO PRN (23:00)
[2025-02-18] MEDS ORDERED: TEMAZEPAM 7.5 MG CAPSULE PO PRN ×2 (23:00)
[2025-02-18] MEDS ORDERED: MAGNESIUM HYDROXIDE 30 ML UDC PO PRN (23:00)
[2025-02-18] MEDS: BLOOD SUGAR DIAGNOSTIC 1 EACH STRIP IN ONE (23:19)
[2025-02-19] MEDS ORDERED: GUAIFENESIN 300 MG/15 ML UDC PO PRN (01:00)
[2025-02-19] MEDS: GABAPENTIN 300 MG CAPSULE PO SCH (07:23)
[2025-02-19] MEDS ORDERED: OMEPRAZOLE 20 MG CAPSULE.DR PO SCH (07:30)
[2025-02-19 07:57] LABS: ALBUMIN 3.7 g/dL (3.4-5.0); BILIRUBIN,TOTAL 0.8 mg/dL (0.2-1.0); CALCIUM, SERUM 9.7 mg/dL (8.5-10.1); CREATININE 0.6 mg/dL (0.6-1.3); POTASSIUM 3.9 mmol/L (3.5-5.1); TOTAL PROTEIN, SERUM 6.5 g/dL (6.4-8.2)
[2025-02-19 07:59] LABS: THYROID STIMULATING HORMONE 1.3 uIU/mL (0.358-3.74)
[2025-02-19 08:00] VITALS: BP 148/66; TEMP 98; O2SAT 95
[2025-02-19 08:20] LABS: CHOLESTEROL 163 mg/dL (<200); HDL CHOLESTEROL 69 mg/dL (40-60); LDL 81 mg/dL (0-99); TRIGLYCERIDES 83 mg/dL (30-150)
[2025-02-19] MEDS: ASPIRIN 81 MG TAB.CHEW PO SCH (09:37)
[2025-02-19] MEDS: AMLODIPINE BESYLATE 5 MG TABLET PO SCH (09:37)
[2025-02-19] MEDS: NICOTINE PATCH (21MG) 21 MG PATCH.TD24 TD SCH (09:38)
[2025-02-19] MEDS: PSYLLIUM SEED 1 PKT PACKET PO SCH (09:38)
[2025-02-19] MEDS: PRAMIPEXOLE DI-HCL 0.25 MG TABLET PO SCH (09:38)
[2025-02-19] MEDS: CYANOCOBALAMIN 100 MCG TABLET PO SCH (09:39)
[2025-02-19] MEDS: ASCORBIC ACID 500 MG TABLET PO SCH (09:40)
[2025-02-19] MEDS: SOTALOL HCL 80 MG TABLET PO SCH (09:41)
[2025-02-19] MEDS: RIVAROXABAN 10 MG TABLET PO SCH (09:43)
[2025-02-19 11:00] LABS: CREATININE 0.7 mg/dL (0.6-1.3)
[2025-02-19] MEDS: risperiDONE 1 MG TABLET PO SCH (11:00)
[2025-02-19 20:00] VITALS: BP 130/74; TEMP 98.2; O2SAT 95
[2025-02-19] MEDS: SENNOSIDES 8.6 MG TABLET PO SCH (21:10)
[2025-02-19] MEDS: ATORVASTATIN 40 MG TABLET PO SCH (21:10)
[2025-02-20 08:00] VITALS: BP 115/68; TEMP 97.7; O2SAT 98
[2025-02-20] MEDS: PANTOPRAZOLE 40 MG TABLET.DR PO SCH (09:49)
[2025-02-20] MEDS: risperiDONE 1 MG TABLET PO SCH (10:06)
[2025-02-20] MEDS: SERTRALINE HCL 25 MG TABLET PO SCH (13:40)
[2025-02-20 16:00] VITALS: BP 111/69; TEMP 97.8; O2SAT 98
[2025-02-20 20:20] VITALS: BP_SYST 132; BP_SYST 140; BP_DIAS 76; BP_DIAS 78; TEMP 98; O2SAT 99
[2025-02-21 08:00] VITALS: BP 129/72; TEMP 97.8; O2SAT 98
[2025-02-21 20:48] VITALS: BP 121/77; TEMP 97.8; O2SAT 99
[2025-02-22] MEDS: CYANOCOBALAMIN 500 MCG TABLET PO SCH (08:33)
[2025-02-22 20:55] VITALS: BP 128/94; TEMP 98.1; O2SAT 96
[2025-02-23 08:00] VITALS: BP 110/73; TEMP 97.8; O2SAT 98
[2025-02-23 19:48] VITALS: BP 119/59; TEMP 98.1; O2SAT 96
[2025-02-24 08:00] VITALS: BP 118/90; TEMP 98.1; O2SAT 98
[2025-02-24 16:00] VITALS: BP 123/78; TEMP 98.1; O2SAT 98
[2025-02-24 20:42] VITALS: BP 112/60; TEMP 97.9; O2SAT 100
[2025-02-24] MEDS: LORAZEPAM 0.5 MG TABLET PO PRN (22:04)
[2025-02-25 08:00] VITALS: BP 123/72; TEMP 98.7; O2SAT 97
[2025-02-25 13:22] LABS: BASOPHILS % (AUTO) 0.4 % (0.0-2.0); EOSINOPHILS # (AUTO) 0.1 K/uL (0.0-0.7); EOSINOPHILS % (AUTO) 1.7 % (0.0-6.0); HEMATOCRIT 41 % (33-45); HEMOGLOBIN 14.1 g/dL (11.5-14.8); LYMPHOCYTES # (AUTO) 0.9 K/uL (0.8-4.8); LYMPHOCYTES % (AUTO) 22.4 % (20.0-44.0); MEAN CORPUSCULAR HEMOGLOBIN 31 PG (26.0-33.0); MEAN CORPUSCULAR HGB CONC 34 g/dl (31.0-36.0); MEAN CORPUSCULAR VOLUME 91 fL (82-100); MONOCYTES # (AUTO) 0.3 K/uL (0.1-1.30); NEUTROPHILS # (AUTO) 2.8 K/uL (1.8-8.9); NEUTROPHILS % (AUTO) 67.5 % (43.0-81.0); PLATELET COUNT (AUTO) 142 K/uL (150-450); RED BLOOD CELL COUNT(AUTO) 4.49 MIL/uL (4.0-5.2); RED CELL DISTRIBUTION WIDTH 14.2 % (11.5-15.0); WHITE BLOOD COUNT (AUTO) 4.2 K/uL (4.3-11.0)
[2025-02-25 13:38] LABS: CALCIUM, SERUM 9.5 mg/dL (8.5-10.1); CREATININE 0.8 mg/dL (0.6-1.3); MAGNESIUM 1.8 mg/dL (1.8-2.4); POTASSIUM 4.2 mmol/L (3.5-5.1)
[2025-02-25 14:35] LABS: APPEARANCE,URINE CLEAR (CLEAR); BILIRUBIN,URINE NEGATIVE (NEGATIVE); BLOOD, URINE NEGATIVE Ery/uL (NEGATIVE); COLOR,URINE YELLOW (YELLOW); KETONES,URINE NEGATIVE (NEGATIVE); LEUKOCYTE ESTERASE ,URINE NEGATIVE (NEGATIVE); NITRITE, URINE NEGATIVE (NEGATIVE); PROTEIN,URINE NEGATIVE (NEGATIVE); UGLUCOSE NEGATIVE (NEGATIVE); UROBILINOGEN,URINE 0.2 EU/dL (0.2)
[2025-02-25 16:00] VITALS: BP 98/54; TEMP 98.1; O2SAT 98
[2025-02-25] MEDS ORDERED: diphenhydrAMINE HCL 50 MG/ML VIAL IV ONE (17:00)
[2025-02-25] MEDS ORDERED: METOCLOPRAMIDE HCL 10 MG/2 ML VIAL IV ONE (17:00)
[2025-02-25] MEDS: IV NS 0.9% 1,000 ML IV ONE (17:42)
[2025-02-25] MEDS: diphenhydrAMINE HCL 50 MG/ML VIAL IM ONE (17:42)
[2025-02-25] MEDS: METOCLOPRAMIDE HCL 10 MG/2 ML VIAL IM ONE (17:57)
[2025-02-25] MEDS: ACETAMINOPHEN 325 MG TABLET PO PRN (18:12)
[2025-02-25 20:01] VITALS: BP 96/46; TEMP 98; O2SAT 97
[2025-02-25 21:00] VITALS: BP 132/54; TEMP 97; O2SAT 98
[2025-02-26 08:00] VITALS: BP 132/80; TEMP 98.1; O2SAT 98
[2025-02-26] MEDS: SERTRALINE HCL 50 MG TABLET PO SCH (12:11)
[2025-02-26 16:00] VITALS: BP 124/64; TEMP 98.9; O2SAT 96
[2025-02-26 20:00] VITALS: BP 126/65; TEMP 98.1; O2SAT 98
[2025-02-27 08:00] VITALS: BP 113/47; TEMP 98; O2SAT 97
[2025-02-27] MEDS: risperiDONE 1 MG TABLET PO SCH (08:38)
[2025-02-27 16:00] VITALS: BP 140/61; TEMP 97.9; O2SAT 99
[2025-02-27 20:07] VITALS: BP 133/64; TEMP 97.8; O2SAT 98
[2025-02-28 08:00] VITALS: BP 129/86; TEMP 97.8; O2SAT 98
[2025-02-28 16:00] VITALS: BP 96/64; TEMP 98.1; O2SAT 97
[2025-02-28] MEDS: CIPROFLOXACIN HCL 0.3% 5 ML BOTTLE RIGHTEYE SCH (16:03)
[2025-02-28] MEDS: AMOX/CLAVULANATE 875 MG TABLET PO SCH (16:03)
[2025-02-28 20:02] VITALS: BP 114/61; TEMP 97.8; O2SAT 97
[2025-03-01 08:00] VITALS: BP 110/64; TEMP 97.7; O2SAT 97
[2025-03-01 16:00] VITALS: BP 90/58; TEMP 98; O2SAT 96
[2025-03-01 20:58] VITALS: BP 128/63; TEMP 98.4; O2SAT 96
[2025-03-02 09:27] VITALS: BP 109/51; TEMP 98.7; O2SAT 98
== END 2025-03-02 10:30 | DRG 885 ==
LOC: ER 17:28 → GPS 22:27
PROVIDERS: ADMIT Nurse Practitioner Psychiatric/Mental Health; ATTEND Nurse Practitioner Family
DX: F39 Unspecified mood [affective] disorder (principal); I69.351 Hemiplegia and hemiparesis following cerebral infarction affecting right dominant side; L03.213 Periorbital cellulitis; F29 Unspecified psychosis not due to a substance or known physiological condition; E78.5 Hyperlipidemia, unspecified; F32.A Depression, unspecified; I25.10 Atherosclerotic heart disease of native coronary artery without angina pectoris; F41.9 Anxiety disorder, unspecified; I10 Essential (primary) hypertension; I48.91 Unspecified atrial fibrillation; Z95.0 Presence of cardiac pacemaker; R53.1 Weakness; M19.90 Unspecified osteoarthritis, unspecified site; F32.9 Major depressive disorder, single episode, unspecified; Z87.448 Personal history of other diseases of urinary system; Z79.82 Long term (current) use of aspirin; Z79.01 Long term (current) use of anticoagulants; Z79.899 Other long term (current) drug therapy; F17.200 Nicotine dependence, unspecified, uncomplicated; Z68.28 Body mass index [BMI] 28.0-28.9, adult; E66.9 Obesity, unspecified; G89.29 Other chronic pain; Z73.6 Limitation of activities due to disability; R29.6 Repeated falls; H10.9 Unspecified conjunctivitis; L72.11 Pilar cyst
CPT/HCPCS: 36415; 70450-TC; 80048-TC; 80053-TC; 80061-TC; 80076-TC; 81001; 82565-TC; 82962-TC; 83735-TC; 84439-TC; 84443-TC; 85025-TC; 87081-TC; A4223; G0480; J1200; J2765; J7030

== ENCOUNTER 2025-03-24 20:40 | Inpatient (IN) | payer MEDICARE, BC, MEDICAID ==
[~2025-03-24] VITALS: Ht 165.1 cm; Wt 65.1 kg
[~2025-03-24 20:40] MED LIST changes: +GABA300C PO; +NICO-726 BC; -POLY17PO4 PO; +SENN-261 PO
[2025-03-24 23:07] LABS: BASOPHILS # (AUTO) 0.1 K/uL (0.0-0.2); BASOPHILS % (AUTO) 1.3 % (0.0-2.0); CALCIUM, SERUM 9.6 mg/dL (8.5-10.1); CREATININE 0.7 mg/dL (0.6-1.3); EOSINOPHILS # (AUTO) 0.1 K/uL (0.0-0.7); EOSINOPHILS % (AUTO) 2.1 % (0.0-6.0); HEMATOCRIT 42 % (33-45); HEMOGLOBIN 14.1 g/dL (11.5-14.8); LYMPHOCYTES # (AUTO) 1.6 K/uL (0.8-4.8); LYMPHOCYTES % (AUTO) 24.3 % (20.0-44.0); MEAN CORPUSCULAR HEMOGLOBIN 31 PG (26.0-33.0); MEAN CORPUSCULAR HGB CONC 34 g/dl (31.0-36.0); MEAN CORPUSCULAR VOLUME 93 fL (82-100); MONOCYTES # (AUTO) 0.4 K/uL (0.1-1.30); MONOCYTES % (AUTO) 6.5 % (2.0-12.0); NEUTROPHILS # (AUTO) 4.4 K/uL (1.8-8.9); NEUTROPHILS % (AUTO) 65.8 % (43.0-81.0); PLATELET COUNT (AUTO) 174 K/uL (150-450); POTASSIUM 3.8 mmol/L (3.5-5.1); RED BLOOD CELL COUNT(AUTO) 4.53 MIL/uL (4.0-5.2); RED CELL DISTRIBUTION WIDTH 14.1 % (11.5-15.0); WHITE BLOOD COUNT (AUTO) 6.7 K/uL (4.3-11.0)
[2025-03-24 23:10] LABS: LACTIC ACID 1.1 mmol/L (0.4-2.0)
[2025-03-24 23:10] LABS: APPEARANCE,URINE SLIGHTLY CLOUDY (CLEAR); BILIRUBIN,URINE NEGATIVE (NEGATIVE); BLOOD, URINE 2+ Ery/uL (NEGATIVE); COLOR,URINE YELLOW (YELLOW); KETONES,URINE NEGATIVE (NEGATIVE); LEUKOCYTE ESTERASE ,URINE 2+ (NEGATIVE); NITRITE, URINE NEGATIVE (NEGATIVE); PROTEIN,URINE TRACE mg/dl (NEGATIVE); UGLUCOSE NEGATIVE (NEGATIVE); UROBILINOGEN,URINE 0.2 EU/dL (0.2)
[2025-03-24 23:19] LABS: ALBUMIN 3.5 g/dL (3.4-5.0); BILIRUBIN,TOTAL 0.3 mg/dL (0.2-1.0); TOTAL PROTEIN, SERUM 6.2 g/dL (6.4-8.2)
[2025-03-24 23:32] LABS: ADD URINE CULTURE YES; BACTERIA,URINE Moderate /HPF (None Seen)
[2025-03-24 23:33] LABS: RBC,URINE 21-50 /HPF (0-2); WBC,URINE 21-50 /HPF (0-3)
[2025-03-25] MEDS: CEFTRIAXONE 1 G in IV D5W 50 ML IV ONE (04:00)
[2025-03-25] MEDS ORDERED: CEFTRIAXONE 1GM BAG (ER ONLY) 50 ML IV ONE (04:06)
[2025-03-25] MEDS ORDERED: ENOXAPARIN SODIUM 40 MG/0.4 ML DISP.SYRIN SQ ONE (06:29)
[2025-03-25] MEDS ORDERED: MAG HYDROX/AL HYDROX/SIMETH 30 ML UDC PO PRN (06:30)
[2025-03-25] MEDS ORDERED: Z GUARD REMEDY 4 OZ OINT TP PRN (06:30)
[2025-03-25] MEDS ORDERED: MAGNESIUM HYDROXIDE 30 ML UDC PO PRN (06:30)
[2025-03-25] MEDS ORDERED: ONDANSETRON HCL/PF 4 MG/2 ML VIAL IVP PRN (06:30)
[2025-03-25] MEDS ORDERED: ENOXAPARIN SODIUM 40 MG/0.4 ML DISP.SYRIN SQ SCH ×2 (06:30→09:00)
[2025-03-25] MEDS ORDERED: ACETAMINOPHEN 325 MG TABLET PO PRN (06:30)
[2025-03-25] MEDS ORDERED: ZOLPIDEM TARTRATE 5 MG TABLET PO PRN (06:30)
[2025-03-25] MEDS: PANTOPRAZOLE 40 MG TABLET.DR PO SCH (07:30)
[2025-03-25] MEDS: ASPIRIN 81 MG TAB.CHEW PO SCH (11:19)
[2025-03-25] MEDS: GABAPENTIN 300 MG CAPSULE PO SCH (11:19)
[2025-03-25] MEDS: PSYLLIUM SEED 1 PKT PACKET PO SCH (11:19)
[2025-03-25] MEDS: SOTALOL HCL 80 MG TABLET PO SCH (11:20)
[2025-03-25] MEDS: FERROUS SULFATE (325 MG) 325 MG/TAB TABLET PO SCH (11:20)
[2025-03-25] MEDS: AMLODIPINE BESYLATE 5 MG TABLET PO SCH (11:21)
[2025-03-25] MEDS: risperiDONE 1 MG TABLET PO SCH (13:04)
[2025-03-25] MEDS: PRAMIPEXOLE DI-HCL 0.25 MG TABLET PO SCH (13:04)
[2025-03-25] MEDS: RIVAROXABAN 10 MG TABLET PO SCH (17:47)
[2025-03-25 20:00] VITALS: BP 123/71; TEMP 98.1; O2SAT 98
[2025-03-25] MEDS: ATORVASTATIN 40 MG TABLET PO SCH (21:27)
[2025-03-25] MEDS: SENNOSIDES 8.6 MG TABLET PO SCH (21:27)
[2025-03-25] MEDS: TRAZODONE 50 MG TABLET PO SCH (21:27)
[2025-03-26] MEDS: CEFTRIAXONE 1 G in IV D5W 50 ML IV SCH (06:24)
[2025-03-26 06:43] LABS: BASOPHILS % (AUTO) 0.3 % (0.0-2.0); EOSINOPHILS % (AUTO) 0.8 % (0.0-6.0); HEMATOCRIT 46 % (33-45); HEMOGLOBIN 14.8 g/dL (11.5-14.8); LYMPHOCYTES # (AUTO) 1.1 K/uL (0.8-4.8); LYMPHOCYTES % (AUTO) 20.3 % (20.0-44.0); MEAN CORPUSCULAR HEMOGLOBIN 31 PG (26.0-33.0); MEAN CORPUSCULAR HGB CONC 32 g/dl (31.0-36.0); MEAN CORPUSCULAR VOLUME 96 fL (82-100); MONOCYTES # (AUTO) 0.4 K/uL (0.1-1.30); MONOCYTES % (AUTO) 6.3 % (2.0-12.0); NEUTROPHILS # (AUTO) 4.1 K/uL (1.8-8.9); NEUTROPHILS % (AUTO) 72.3 % (43.0-81.0); PLATELET COUNT (AUTO) 188 K/uL (150-450); RED BLOOD CELL COUNT(AUTO) 4.79 MIL/uL (4.0-5.2); RED CELL DISTRIBUTION WIDTH 14.8 % (11.5-15.0); WHITE BLOOD COUNT (AUTO) 5.6 K/uL (4.3-11.0)
[2025-03-26 06:59] LABS: CALCIUM, SERUM 9.4 mg/dL (8.5-10.1); CREATININE 0.5 mg/dL (0.6-1.3); MAGNESIUM 2.3 mg/dL (1.8-2.4); PHOSPHORUS 3.5 mg/dL (2.5-4.9); POTASSIUM 4.9 mmol/L (3.5-5.1)
[2025-03-26 07:00] VITALS: BP 127/55; TEMP 97.9; O2SAT 95
[2025-03-26] MEDS: ASCORBIC ACID 500 MG TABLET PO SCH (08:23)
[2025-03-26] MEDS: ESCITALOPRAM OXALATE (10 MG) 10 MG TABLET PO SCH (08:23)
[2025-03-26] MEDS: CYANOCOBALAMIN 500 MCG TABLET PO SCH (08:24)
[2025-03-26 16:00] VITALS: BP 104/53; TEMP 97.7; O2SAT 95
[2025-03-26 20:00] VITALS: BP 111/67; TEMP 97.2; TEMP 97.7; O2SAT 98
[2025-03-26] MEDS: POLYETHYLENE GLYCOL 3350 17 GM POWD.PACK PO SCH (21:40)
[2025-03-27 07:12] LABS: BASOPHILS % (AUTO) 0.2 % (0.0-2.0); EOSINOPHILS # (AUTO) 0.1 K/uL (0.0-0.7); EOSINOPHILS % (AUTO) 1.3 % (0.0-6.0); HEMATOCRIT 41 % (33-45); HEMOGLOBIN 13.5 g/dL (11.5-14.8); LYMPHOCYTES # (AUTO) 1.2 K/uL (0.8-4.8); LYMPHOCYTES % (AUTO) 23.5 % (20.0-44.0); MEAN CORPUSCULAR HEMOGLOBIN 31 PG (26.0-33.0); MEAN CORPUSCULAR HGB CONC 33 g/dl (31.0-36.0); MEAN CORPUSCULAR VOLUME 93 fL (82-100); MONOCYTES # (AUTO) 0.4 K/uL (0.1-1.30); MONOCYTES % (AUTO) 7.9 % (2.0-12.0); NEUTROPHILS # (AUTO) 3.5 K/uL (1.8-8.9); NEUTROPHILS % (AUTO) 67.1 % (43.0-81.0); PLATELET COUNT (AUTO) 181 K/uL (150-450); RED BLOOD CELL COUNT(AUTO) 4.34 MIL/uL (4.0-5.2); WHITE BLOOD COUNT (AUTO) 5.3 K/uL (4.3-11.0)
[2025-03-27 07:33] LABS: CALCIUM, SERUM 9.5 mg/dL (8.5-10.1); CREATININE 0.7 mg/dL (0.6-1.3); POTASSIUM 4.2 mmol/L (3.5-5.1)
[2025-03-27 08:24] VITALS: BP 149/54; TEMP 98.1; O2SAT 95
[2025-03-27 16:39] VITALS: BP 125/54; TEMP 98.1; O2SAT 95
[2025-03-27 20:00] VITALS: BP 159/75; TEMP 98.1; O2SAT 95
[2025-03-27 20:38] VITALS: BP 142/80
[2025-03-27] MEDS: NITROFURANTOIN/MONOHYDRATE MACROCRYSTALS 100 MG CAPSULE PO SCH (21:06)
[2025-03-28 08:00] VITALS: BP 145/72; TEMP 98.2; O2SAT 94
[2025-03-28 08:33] VITALS: BP 145/72; TEMP 98.2; O2SAT 94
[2025-03-28] MEDS ORDERED: NITR100C15 PO (12:51)
[2025-03-28] MEDS ORDERED: POLY17PO29 PO (12:51)
[2025-03-28 16:00] VITALS: BP 101/60; TEMP 98.4; O2SAT 95
[2025-03-28 17:12] VITALS: BP 101/60
== END 2025-03-28 17:25 | DRG 689 ==
LOC: ER 20:42 → MED 03-25 05:28
PROVIDERS: ADMIT Nurse Practitioner Acute Care; ATTEND Nurse Practitioner Acute Care
DX: N39.0 Urinary tract infection, site not specified (principal); G93.41 Metabolic encephalopathy; I48.20 Chronic atrial fibrillation, unspecified; Z95.0 Presence of cardiac pacemaker; E78.5 Hyperlipidemia, unspecified; I10 Essential (primary) hypertension; I25.10 Atherosclerotic heart disease of native coronary artery without angina pectoris; K59.00 Constipation, unspecified; Z79.01 Long term (current) use of anticoagulants; Z79.82 Long term (current) use of aspirin; Z86.73 Personal history of transient ischemic attack (TIA), and cerebral infarction without residual deficits; B96.20 Unspecified Escherichia coli [E. coli] as the cause of diseases classified elsewhere; M19.90 Unspecified osteoarthritis, unspecified site; F03.90 Unspecified dementia, unspecified severity, without behavioral disturbance, psychotic disturbance, mood disturbance, and anxiety; Z87.891 Personal history of nicotine dependence; R10.9 Unspecified abdominal pain
CPT/HCPCS: 36415; 71045-TC; 80048-TC; 80053-TC; 81001; 83605-TC; 83690-TC; 83735-TC; 83880; 84100-TC; 84484-TC; 85025-TC; 87040-TC; 87086-TC; 87186-TC; 97112-TC; 97116-TC; 97530-TC; A4223; G0378; J0696; J1650; J7050; J7060